=== PATIENT | female | born 1985 | race Caucasian/White ===

== ENCOUNTER 2017-03-15 17:50 | Emergency (ER) | payer MEDICAID ==
[2017-03-15] MEDS ORDERED: NS 0.9% 1000 ML* 1,000 ML IV ONE ×2 (18:04→18:56)
[2017-03-15 18:14] LABS: Hematocrit 39 % (35-47); Hemoglobin 12.7 g/dl (12.0-16.0); Mean Corpuscular HGB Conc 33 g/dl (31-36); Mean Corpuscular Hemoglobin 28 pg (27-31); Mean Corpuscular Volume 87 fL (80-97); Mean Platelet Volume 7 um3 (7.4-10.4); Red Blood Count 4.48 10^6/ul (4.0-5.4); Red Cell Distribution Width 15 % (10.5-15); White Blood Count 5.2 10^3/ul (3.5-10.8)
[2017-03-15 18:17] LABS: Add Diff/Slide Review? Slide Review Added; Comments Flag Yes
[2017-03-15 18:29] LABS: ALT 144 U/L (7-52); AST 415 U/L (13-39); Albumin 4.2 g/dL (3.2-5.2); Alkaline Phosphatase 82 U/L (34-104); Anion Gap 11 mmol/L (2-11); BUN/Creatinine Ratio 19.3 (8-20); Blood Urea Nitrogen 17 mg/dL (6-24); CO2 Carbon Dioxide 24 mmol/L (22-32); Calcium 9.2 mg/dL (8.6-10.3); Chloride 103 mmol/L (101-111); Creatine Kinase 618 U/L (10-223); EGFR African American 97.7 (>60); Globulin 3.4 g/dL (2-4); Glucose 126 mg/dL (70-100); Potassium 3.5 mmol/L (3.5-5.0); Sodium 138 mmol/L (133-145); Total Protein 7.6 g/dL (6.4-8.9)
[2017-03-15 18:40] LABS: Acetaminophen < 15 mcg/mL; Alcohol 323 mg/dL (<10); Salicylate < 2.50 mg/dL (<30)
[2017-03-15 18:51] LABS: TSH (Thyroid Stimulating Horm) 1.62 mcIU/mL (0.34-5.60)
--- NOTE | 2017-03-15 18:59 | ED ---
I, Oh,Soohyun, scribed for Michael Petersen MD on 03/15/17 at 1806 . Substance Abuse/Use - HPI Summary HPI Summary: This 31 y/o female presents to ED via ambulance after being found down by EMS today. Pt was given nasal narcan and CPR on scene, after which pt became responsive again. Pt is tearful but alert and oriented at time of initial evaluation. Pt states that she was "shooting up" recreationally. Pt keeps insisting that she managed to abstained for 4.5 weeks before today's use. She denies that it was suicide attempt. Negative hallucination. EtOH consumption with vodka and beer. - History Of Current Complaint Chief Complaint: EDOverdose Stated Complaint: OVERDOSE Time Seen by Provider: 03/15/17 17:56 Hx Obtained From: Patient, EMS Hx Last Menstrual Period: 3 weeks ago Onset/Duration of Drug/ETOH Abuse: Hours Overdose Characteristics: IV Aggravating Factor(s): Nothing Alleviating Factor(s): Nothing Associated Signs And Symptoms: Intentional Ingestion - recreational - Allergies/Home Medications Allergies/Adverse Reactions: Allergies Allergy/AdvReac Type Severity Reaction Status Date / Time No Known Drug Allergy Allergy See Comment Verified 12/13/15 16:41 Bees Allergy Severe Airway Uncoded 12/13/15 16:41 Obstruction PMH/Surg Hx/FS Hx/Imm Hx Cardiovascular History: Reports: Other Cardiovascular Problems/Disorders - Endocarditis Respiratory History: Reports: Hx Asthma History: Reports: Hx Kidney Infection - age 9, Other Problems/Disorders - ovarian cyst-2006 Musculoskeletal History: Reports: Hx Back Problems Psychiatric History: Reports: Hx Anxiety, Hx Depression, Hx Post Traumatic Stress Disorder - confirmed DSM diagnosis of, Hx Inpatient Treatment - prior U admission as in-pt in 2011, Hx Community Mental Health Tx, Hx Suicide Attempt - suicidal gesture while intoxicated in 2010, Hx Substance Abuse, Other Psychiatric Issues/Disorders - night terrors - Cancer History Cancer Type, Location and Year: ovarian cyst - Surgical History Surgery Procedure, Year, and Place: 2 LEFT KNEE SCOPES, 2 D&Cs, TEETH EXTRACTION , tonsilectomy, ovarian cyst removal Infectious Disease History: Unable to Obtain/Confirm Infectious Disease History: Reports: Hx Hepatitis - hep c +, Hx of Known/ Suspected MRSA Denies: Traveled Outside the [place] in Last 30 Days - Family History Known Family History: Positive: Other - substance abuse - Social History Alcohol Use: Rare Alcohol Amount: hx EtOH abuse Hx Substance Use: Yes Substance Use Type: Reports: Cocaine, Heroin Substance Use Comment - Amount & Last Used: Last use recent Hx Tobacco Use: Yes Smoking Status (MU): Heavy Every Day Tobacco Smoker Type: Cigarettes Amount Used/How Often: 1/2 ppd Have You Smoked in the Last Year: Yes Review of Systems Negative: Fever Positive: Other - burn duncan on LLE leg. Positive abrasion and cut on right side of face Positive: Other - IV drug overdose All Other Systems Reviewed And Are Negative: Yes Physical Exam - Summary Physical Exam Summary: The patient is well-nourished in no acute distress and in no acute pain. The skin is warm and dry and skin color reflects adequate perfusion. Positive burn duncan on LLE lower leg. Positive track lisa on LUE arm. Abrasion on right eyebrow. Cut in right ear. HEENT: The head is normocephalic and atraumatic. The pupils are equal and reactive. The conjunctivae are clear and without drainage. Nares are patent and without drainage. Mouth reveals moist mucous membranes and the throat is without erythema and exudate. The external ears are intact. The ear canals are patent and without drainage. The tympanic membranes are intact. No blood behind ear drums. Neck is supple with full range of motion and non-tender. There are no carotid bruits. There is no neck vein distension. Respiratory: Chest is non-tender. Lungs are clear to auscultation and breath sounds are symmetrical and equal. Cardiovascular: Tachycardic. There is no murmur or rub auscultated. There is no peripheral edema and pulses are symmetrical and equal. Abdomen: The abdomen is soft and non-tender. There are normal bowel sounds heard in all four quadrants and there is no organomegaly palpated. Musculoskeletal: There is no back pain noted. Extremities are non-tender with full range of motion. There is good capillary refill. There is no peripheral edema or calf tenderness elicited. Neurological: Patient is alert and oriented to person, place and time. The patient has symmetrical motor strength in all four extremities. Cranial nerves are grossly intact. Deep tendon reflexes are symmetrical and equal in all four extremities. Psychiatric: The patient has an appropriate affect and does not exhibit any anxiety or depression. Triage Information Reviewed: Yes Vital Signs On Initial Exam: Initial Vitals Temp Pulse Resp BP Pulse Ox 97.7 F 118 18 157/117 98 03/15/17 17:51 03/15/17 17:51 03/15/17 17:51 03/15/17 17:51 03/15/17 17:51 Vital Signs Reviewed: Yes Diagnostics - Vital Signs Vital Signs Temp Pulse Resp BP Pulse Ox 03/15/17 17:51 97.7 F 118 18 157/117 98 - Laboratory Lab Results: Lab Results 03/15/17 03/15/17 03/15/17 Range/Units 18:07 18:07 18:07 WBC 5.2 (3.5-10.8) 10^3/ul RBC 4.48 (4.0-5.4) 10^6/ul Hgb 12.7 (12.0-16.0) g/dl Hct 39 (35-47) % MCV 87 (80-97) fL MCH 28 (27-31) pg MCHC 33 (31-36) g/dl RDW 15 (10.5-15) % Plt Count 202 (150-450) 10^3/ul MPV 7 L (7.4-10.4) um3 Neut % (Auto) 32.0 L (38-83) % Lymph % (Auto) 60.1 H (25-47) % [place] % (Auto) 5.2 (1-9) % Eos % (Auto) 2.3 (0-6) % Baso % (Auto) 0.4 (0-2) % Absolute Neuts (auto) 1.7 (1.5-7.7) 10^3/ul Absolute Lymphs (auto) 3.1 (1.0-4.8) 10^3/ul Absolute Monos (auto) 0.3 (0-0.8) 10^3/ul Absolute Eos (auto) 0.1 (0-0.6) 10^3/ul Absolute Basos (auto) 0 (0-0.2) 10^3/ul Absolute Nucleated RBC 0 10^3/ul Nucleated RBC % 0.1 Sodium 138 (133-145) mmol/L Potassium 3.5 (3.5-5.0) mmol/L Chloride 103 (101-111) mmol/L Carbon Dioxide 24 (22-32) mmol/L Anion Gap 11 (2-11) mmol/L BUN 17 (6-24) mg/dL Creatinine 0.88 (0.51-0.95) mg/dL Est GFR ( Amer) 97.7 (>60) Est GFR (Non-Af Amer) 76.0 (>60) BUN/Creatinine Ratio 19.3 (8-20) Glucose 126 H (70-100) mg/dL Lactic Acid 3.2 H* (0.5-2.0) mmol/L Calcium 9.2 (8.6-10.3) mg/dL Total Bilirubin 0.50 (0.2-1.0) mg/dL AST 415 H (13-39) U/L ALT 144 H (7-52) U/L Alkaline Phosphatase 82 (34-104) U/L Total Creatine Kinase 618 H (10-223) U/L Total Protein 7.6 (6.4-8.9) g/dL Albumin 4.2 (3.2-5.2) g/dL Globulin 3.4 (2-4) g/dL Albumin/Globulin Ratio 1.2 (1-3) TSH 1.62 (0.34-5.60) mcIU/mL Salicylates < 2.50 (<30) mg/dL Acetaminophen < 15 mcg/mL Serum Alcohol 323 H (<10) mg/dL Result Diagrams: 03/15/17 18:07 03/15/17 18:07 Lab Statement: Any lab studies that have been ordered have been reviewed, and results considered in the medical decision making process. - EKG 1852 Cardiac Rate: NL - 97 bpm EKG Rhythm: Sinus Rhythm Course/Dx - Course Assessment/Plan: This 31 y/o female presents to ED via ambulance after being found down on scene. EMS reports presence of IV syringe on the scene. Pt regained consciousness after nasal narcan. Pt is currently alert and oriented at time of initial evaluation, tearful and inconsolable. Pt does admit to IVDA, but states that it was recreational and not suicidal. Right sided facial abrasion, laceration in ear, and track duncan on RUE is noted upon examination. Pt states that she has been clean for 4.5 weeks before today's use. Bloodwork and drug screen are ordered and pending. Pt signed out at shift change. - Diagnoses Differential Diagnosis/HQI/PQRI: Positive: Alcohol Abuse, Other - substance abuse Provider Diagnoses: Substance abuse, IV drug abuse, Acute alcohol intoxication, Heroin overdose Discharge - Discharge Plan Condition: Stable Disposition: OTHER Discharge Disposition Comment: Signed out at shift change. Pending lab work. Patient Education Materials: Polysubstance Abuse (ED) Referrals: Luli Zavala NP [Primary Care Provider] - The documentation as recorded by the Gabriel jolly Soohyun accurately reflects the service I personally performed and the decisions made by , Michael Petersen MD.
[2017-03-15 20:23] LABS: Urine Bacteria 2+ (Absent); Urine Bilirubin Negative (Negative); Urine Glucose Negative (Negative); Urine Nitrite Positive (Negative)
[2017-03-16 01:04] VITALS: BP 165/128
== END 2017-03-16 01:01 ==
LOC: ED 17:50
DX: F19.129 Other psychoactive substance abuse with intoxication, unspecified (principal); F11.10 Opioid abuse, uncomplicated; F17.210 Nicotine dependence, cigarettes, uncomplicated
CPT/HCPCS: 36415; 80053; 80320; 80329; 81003; 81015; 82550; 83605; 84443; 85025; 87077; 87086; 87186; 93005; 99284; G0480

== ENCOUNTER 2017-05-23 02:13 | Emergency (ER) | payer OTHER ==
[2017-05-23] MEDS: NS 0.9% 1000 ML* 2,000 ML IV ONE ×2 (02:15→02:17)
[2017-05-23] MEDS ORDERED: Etomidate* 2 MG/ML 10 ML VIAL ONE (02:16)
[2017-05-23] MEDS ORDERED: Succinylcholine* 20 MG/ML 10 ML VIAL ONE (02:17)
[2017-05-23] MEDS ORDERED: Tetan/Diph/Pertus SYR(Tdap)* 0.5 ML SYR(BOOSTRIX) use SYR IM ONE (02:25)
[2017-05-23] MEDS ORDERED: LORazepam INJ* 2 MG/ML 1 ML VIAL ONE (02:28)
--- NOTE | 2017-05-23 02:38 | HP ---
H&P (Free Text) History and Physical: PCP: Ezequiel Suarez NP Date/Time: 05/23/2017 0230 CC: overdose HPI: Mrs Aranda is a 31YO female [id number] arrest brought in via EMS intubated and unable to give a history. No family are present. This information is therefore obtained via the available records and ED/EMS staff. PMedHx IV drug abuse PTSD depression anxiety bacterical endocarditis w/ septic emboli Ambulatory Orders Nursing to reconcile. Gabapentin [Neurontin 400 mg cap] 400 mg PO TID 12/09/15 Prazosin HCl [Minipress] 1 mg PO BEDTIME 12/09/15 traZODone TAB* [Desyrel TAB*] 100 mg PO BEDTIME 12/09/15 Clindamycin Cap(NF) [Clindamycin Cap 300 mg Cap(NF)] 300 mg PO TID #21 cap 12/12 Sulfamethox/Trimethoprim DS* [Bactrim DS 800/160 TAB*] 1 tab PO BID #14 tab Venlafaxine EXT RELEASE CAP* [Effexor Xr CAP*] 150 mg PO DAILY 12/13/15 Epinephrine [Epipen 2-Dorian] 0.3 mg IM ONCE #1 inj 03/24/16 Famotidine TAB* [Pepcid TAB*] 40 mg PO DAILY #30 tab 03/24/16 diPHENhydraMINE PO* [Benadryl PO*] 50 mg PO Q6H PRN #30 cap 03/24/16 predniSONE TAB* [Deltasone TAB*] 60 mg PO DAILY #15 tab 03/24/16 Ciprofloxacin TAB* [Cipro 250 MG Tab*] 250 mg PO BID #6 tab 03/25/17 Allergies No Known Drug Allergy Allergy (Verified 12/13/15 16:41) See Comment Bees Allergy (Severe, Uncoded 12/13/15 16:41) Airway Obstruction PSurgHx tonsillectomy D&C x2 ovarian cyst excision SocHx: previously noted 1/2 PPD cigarettes, previously denied alcohol, previously admitted to 2-3x/day IV heroin addiction & cocaine abuse; current living status unknown; full code status FamHx: Father passed of HIV/AIDS w/ HX IV drug addiction. ROS: as above, otherwise reviewed and all were negative vitals: Vital Signs Temp 37.1 C 05/23/17 02:22 Pulse 106 05/23/17 02:22 Resp 18 05/23/17 02:22 BP 128/90 05/23/17 02:22 Pulse Ox 100 05/23/17 02:22 Constitutional: NAD, normally developed, overweight white female HEENM: atraumatic; sclera/conjunctiva: ; blephara: ; fundi: ; auricles: ; external auditory canals/tympanic membranes: ; hearing: ; nose/nasal: ; dentition: ; oropharynx: Neck: soft tissue: ; thyroid: Pulmonary: clear to auscultation bilaterally, good aeration, no accessory muscle use, percussion, fremitus CV: RR/RR, normal S1S2, no carotid bruit, no femoral bruit, no abdominal bruit, no jugular venous distention, 2+ B DP/PT, no edema Abdominal: soft, non-distended, non-tender, no rebound/guarding/rigidity, normoactive bowel sounds, no hepatosplenomegaly or masses, no costovertebral angle tenderness Lymph: neck: ; axilla: ; groin: Musculoskeletal: general: grossly intact; gait: currently non-ambulatory Integumental: Neurological cranial nerves I: smell II: visual sanchez III/IV/: light reflex, EOMI/PERRLA, convergence, accommodation V: corneal reflex, facial sensation, mastication VII: facial symmetry, eye clench VIII: hearing IX/X: palatal motion, gag reflex, dysarthria XI: shoulder shrug, trapezius atrophy XII: tongue fasciculation, protrusion, voice articulation motor: handed LUE: proximally, distally, & clinical support tech strength RUE: proximally, distally, & clinical support tech strength LLE: proximally & distally RLE: proximally & distally coordination finger/nose: heal/hardy: dysdiadochokinesia: sensory crude touch: pinprick: vibration: proprioception: DTRs biceps: triceps: brachioradialis: patellar: Achilles: Babinski: Psychiatric orientation: affect: mood: eye contact: content: memory: responses: insight: Testing: ECG, personally reviewed: CXR, personally reviewed: Impression: DIAGNOSIS & PLAN Primary Secondary Admission Rational: DVTp: Code Status: HCP:
[2017-05-23] MEDS ORDERED: Rocuronium* 10 MG/ML VIAL IV ONE ×2 (02:41→03:26)
[2017-05-23] MEDS ORDERED: LORazepam INJ* 2 MG/ML 1 ML VIAL IV PUSH ONE ×2 (02:42→03:27)
[2017-05-23] MEDS: LORazepam INJ* 2 MG/ML 1 ML VIAL IV PUSH ONE ×2 (02:45→03:10)
[2017-05-23] MEDS: Rocuronium* 10 MG/ML VIAL IV ONE ×2 (02:46→03:11)
[2017-05-23 02:50] LABS: Comments Flag Yes; Hematocrit 41 % (35-47); Mean Corpuscular HGB Conc 34 g/dl (31-36); Mean Corpuscular Hemoglobin 30 pg (27-31); Mean Corpuscular Volume 88 fL (80-97); Mean Platelet Volume 7 um3 (7.4-10.4); Red Blood Count 4.68 10^6/ul (4.0-5.4); Red Cell Distribution Width 14 % (10.5-15); White Blood Count 9.3 10^3/ul (3.5-10.8)
[2017-05-23 03:00] LABS: ALT 219 U/L (7-52); Albumin 4.7 g/dL (3.2-5.2); Alkaline Phosphatase 64 U/L (34-104); Amylase 38 U/L (29-103); BUN/Creatinine Ratio 9.6 (8-20); Blood Urea Nitrogen 9 mg/dL (6-24); CO2 Carbon Dioxide 24 mmol/L (22-32); Calcium 8.9 mg/dL (8.6-10.3); Chloride 106 mmol/L (101-111); Creatine Kinase 184 U/L (10-223); EGFR African American 90.5 (>60); EGFR Non-African American 70.4 (>60); Globulin 3.2 g/dL (2-4); Glucose 158 mg/dL (70-100); Lipase 25 U/L (11.0-82.0); Sodium 139 mmol/L (133-145); Total Protein 7.9 g/dL (6.4-8.9)
[2017-05-23 03:02] LABS: Add Diff/Slide Review? Slide Review Added
[2017-05-23 03:08] LABS: Troponin I 0.17 ng/mL (<0.04)
[2017-05-23 03:12] LABS: Alcohol 211 mg/dL (<10)
[2017-05-23 03:22] VITALS: BP 109/84
--- NOTE | 2017-05-23 03:25 | ED ---
Monica Sexton Rebecca, scribed for Kali Lopez on 05/23/17 at 0248 . Altered Mental Status - HPI Summary HPI Summary: Pt is a 31 y/o F BIBA who presents to ED with AMS characterized as unresponsiveness s/p hanging. Pt was found on the ground, inside with a hanging device around her neck upon EMS arrival. Intubation was attempted in the field using Versed which was unsuccessful. PSHx IVDA, PMHx endocarditis. Level 5 caveat due to unresponsiveness. - History Of Current Complaint Chief Complaint: EDRespiratoryDistress Stated Complaint: ABC Hx Obtained From: EMS, Medical Records Hx From Patient Unobtainable Due To: Other - Level 5 caveat due to unresponsiveness. Hx Last Menstrual Period: 3 weeks ago Onset/Duration: Still Present Character: Responsiveness - Unresponsiveness Has Suicidal: Demonstrates Gesture - Hanging ADHESIVE SPRAYER - Allergies/Home Medications Allergies/Adverse Reactions: Allergies Allergy/AdvReac Type Severity Reaction Status Date / Time No Known Drug Allergy Allergy See Comment Verified 12/13/15 16:41 Bees Allergy Severe Airway Uncoded 12/13/15 16:41 Obstruction PMH/Surg Hx/FS Hx/Imm Hx Cardiovascular History: Reports: Other Cardiovascular Problems/Disorders - Endocarditis Respiratory History: Reports: Hx Asthma History: Reports: Hx Kidney Infection - age 9, Other Problems/Disorders - ovarian cyst-2006 Musculoskeletal History: Reports: Hx Back Problems Psychiatric History: Reports: Hx Anxiety, Hx Depression, Hx Post Traumatic Stress Disorder - confirmed DSM diagnosis of, Hx Inpatient Treatment - prior U admission as in-pt in 2011, Hx Community Mental Health Tx, Hx Suicide Attempt - suicidal gesture while intoxicated in 2010, Hx Substance Abuse, Other Psychiatric Issues/Disorders - night terrors - Cancer History Cancer Type, Location and Year: ovarian cyst - Surgical History Surgery Procedure, Year, and Place: 2 LEFT KNEE SCOPES, 2 D&Cs, TEETH EXTRACTION , tonsilectomy, ovarian cyst removal Infectious Disease History: Unable to Obtain/Confirm Infectious Disease History: Reports: Hx Hepatitis - hep c +, Hx of Known/ Suspected MRSA Denies: Traveled Outside the [place] in Last 30 Days - Family History Known Family History: Positive: Other - substance abuse - Social History Alcohol Use: Rare Alcohol Amount: hx EtOH abuse Hx Substance Use: Yes Substance Use Type: Reports: Cocaine, Heroin Substance Use Comment - Amount & Last Used: Last use recent Hx Tobacco Use: Yes Smoking Status (MU): Heavy Every Day Tobacco Smoker Type: Cigarettes Amount Used/How Often: 1/2 ppd Have You Smoked in the Last Year: Yes Review of Systems - ROS Summary Review of Systems Summary: Level 5 caveat due to unresponsiveness. Neurological: Other - AMS - unresponsiveness s/p hanging attempt All Other Systems Reviewed And Are Negative: No Physical Exam - Summary Physical Exam Summary: Appearance: Unresponsive Skin: Superficial lacerations to the L forearm Neck: Abrasions to the neck Respiratory: Respiratory rate of 50 Cardiovascular: Tachycardic rate of around 140 bpm Neuro: Unresponsive Level 5 caveat due to unresponsiveness. Triage Information Reviewed: Yes Vital Signs On Initial Exam: Initial Vitals Temp Pulse Resp BP Pulse Ox 98.8 F 106 18 128/90 100 05/23/17 02:22 05/23/17 02:22 05/23/17 02:22 05/23/17 02:22 05/23/17 02:22 Vital Signs Reviewed: Yes Completion Of Physical Exam Limited Due To: Level 5 - Level 5 caveat due to unresponsiveness. Respiratory/Lung Sounds: Positive: Breath Sounds Present, Rhonchi Cardiovascular: Positive: Tachycardia, S1, S2 Abdomen Description: Positive: Nontender Bowel Sounds: Positive: Present Musculoskeletal: Positive: Limited @ Neurological: Positive: Disoriented Procedures - Intubation Time of Intubation: 02:20 Intubation Method: orotracheal Tube Size (cm): 8.0 Medications: Succinylcholine Breath Sounds after Intubation: equal Intubation Complications: no complications Post Intubation Xray: Yes Progress/Xray Impression: Used Glidescope #3 Diagnostics - Vital Signs Vital Signs Temp Pulse Resp BP Pulse Ox 05/23/17 02:22 98.8 F 106 18 128/90 100 - Laboratory Lab Results: Lab Results 05/23/17 05/23/17 05/23/17 Range/Units 02:16 02:16 02:16 WBC 9.3 (3.5-10.8) 10^3/ul RBC 4.68 (4.0-5.4) 10^6/ul Hgb 14.0 (12.0-16.0) g/dl Hct 41 (35-47) % MCV 88 (80-97) fL MCH 30 (27-31) pg MCHC 34 (31-36) g/dl RDW 14 (10.5-15) % Plt Count 353 (150-450) 10^3/ul MPV 7 L (7.4-10.4) um3 Neut % (Auto) 30.5 L (38-83) % Lymph % (Auto) 62.6 H (25-47) % [place] % (Auto) 5.7 (1-9) % Eos % (Auto) 0.7 (0-6) % Baso % (Auto) 0.5 (0-2) % Absolute Neuts (auto) 2.8 (1.5-7.7) 10^3/ul Absolute Lymphs (auto) 5.8 H (1.0-4.8) 10^3/ul Absolute Monos (auto) 0.5 (0-0.8) 10^3/ul Absolute Eos (auto) 0.1 (0-0.6) 10^3/ul Absolute Basos (auto) 0 (0-0.2) 10^3/ul Absolute Nucleated RBC 0.01 10^3/ul Nucleated RBC % 0.1 INR (Anticoag Therapy) (0.89-1.11) Sodium 139 (133-145) mmol/L Potassium Pending Chloride 106 (101-111) mmol/L Carbon Dioxide 24 (22-32) mmol/L Anion Gap Pending BUN 9 (6-24) mg/dL Creatinine 0.94 (0.51-0.95) mg/dL Est GFR ( Amer) 90.5 (>60) Est GFR (Non-Af Amer) 70.4 (>60) BUN/Creatinine Ratio 9.6 (8-20) Glucose 158 H (70-100) mg/dL POC Glucose (mg/dL) (70-100) mg/dL Lactic Acid 3.9 H* (0.5-2.0) mmol/L Calcium 8.9 (8.6-10.3) mg/dL Total Bilirubin 0.40 (0.2-1.0) mg/dL AST Pending ALT 219 H (7-52) U/L Alkaline Phosphatase 64 (34-104) U/L Total Creatine Kinase 184 (10-223) U/L Troponin I 0.17 H* (<0.04) ng/mL Total Protein 7.9 (6.4-8.9) g/dL Albumin 4.7 (3.2-5.2) g/dL Globulin 3.2 (2-4) g/dL Albumin/Globulin Ratio 1.5 (1-3) Amylase 38 (29-103) U/L Lipase 25 (11.0-82.0) U/L Beta HCG, Quant < 0.60 mIU/mL Serum Alcohol 211 H (<10) mg/dL Blood Type Antibody Screen 05/23/17 05/23/17 05/23/17 Range/Units 02:16 02:16 02:23 WBC (3.5-10.8) 10^3/ul RBC (4.0-5.4) 10^6/ul Hgb (12.0-16.0) g/dl Hct (35-47) % MCV (80-97) fL MCH (27-31) pg MCHC (31-36) g/dl RDW (10.5-15) % Plt Count (150-450) 10^3/ul MPV (7.4-10.4) um3 Neut % (Auto) (38-83) % Lymph % (Auto) (25-47) % [place] % (Auto) (1-9) % Eos % (Auto) (0-6) % Baso % (Auto) (0-2) % Absolute Neuts (auto) (1.5-7.7) 10^3/ul Absolute Lymphs (auto) (1.0-4.8) 10^3/ul Absolute Monos (auto) (0-0.8) 10^3/ul Absolute Eos (auto) (0-0.6) 10^3/ul Absolute Basos (auto) (0-0.2) 10^3/ul Absolute Nucleated RBC 10^3/ul Nucleated RBC % INR (Anticoag Therapy) 0.90 (0.89-1.11) Sodium (133-145) mmol/L Potassium Chloride (101-111) mmol/L Carbon Dioxide (22-32) mmol/L Anion Gap BUN (6-24) mg/dL Creatinine (0.51-0.95) mg/dL Est GFR ( Amer) (>60) Est GFR (Non-Af Amer) (>60) BUN/Creatinine Ratio (8-20) Glucose (70-100) mg/dL POC Glucose (mg/dL) 162 H (70-100) mg/dL Lactic Acid (0.5-2.0) mmol/L Calcium (8.6-10.3) mg/dL Total Bilirubin (0.2-1.0) mg/dL AST ALT (7-52) U/L Alkaline Phosphatase (34-104) U/L Total Creatine Kinase (10-223) U/L Troponin I (<0.04) ng/mL Total Protein (6.4-8.9) g/dL Albumin (3.2-5.2) g/dL Globulin (2-4) g/dL Albumin/Globulin Ratio (1-3) Amylase (29-103) U/L Lipase (11.0-82.0) U/L Beta HCG, Quant mIU/mL Serum Alcohol (<10) mg/dL Blood Type A Positive Antibody Screen Pending Result Diagrams: 05/23/17 02:16 05/23/17 02:16 Lab Statement: Any lab studies that have been ordered have been reviewed, and results considered in the medical decision making process. - Radiology CXR Xray Interpretation: No Acute Changes - ET tube above the marcus. No infiltrate. Radiology Interpretation Completed By: ED Physician - CT CT Chest/Abd/pel CT Interpretation Completed By: Radiologist - Pending radiologist interpretation. See [employer] for results. CT C-Spine CT Interpretation Completed By: Radiologist - Pending radiologist interpretation. See [employer] for results. CT Brain CT Interpretation Completed By: Radiologist - Pending radiologist interpretation. See [employer] for results. Altered Mental Statu Course/Dx - Course Assessment/Plan: Pt is a 31 y/o F BIBA who presents to ED with AMS characterized as unresponsiveness s/p hanging. Pt was found on the ground, inside with a hanging device around her neck upon EMS arrival. Intubation was attempted in the field using Versed which was unsuccessful. PSHx IVDA, PMHx endocarditis. Level 5 caveat due to unresponsiveness. POC glucose of 162, serum alcohol of 211, troponin of 0.17, lactic acid of 3.9. Discussed care of pt with Dr. Gomez who advised transfer to a trauma center. Discussed care of pt with [id number] who accepts pt for transfer. Pt will be transferred to the ED and the accepting physician is Dr. Soria. Pt was intubated in the ED, see above procedure note. In the ED course, pt received Ativan, Zemuron, Boostrix, Kefzol and fluids. Pt will be transferred to [facility]. 60 minutes of critical care time. - Diagnoses Discharge Diagnoses: Altered mental status, Respiratory failure, S/p intubation, Suicide attempt by hanging, Contusion, superficial lacerations of left arm - Provider Notifications Discussed Care Of Patient With: Claudia Gomez Time Discussed With Above Provider: 02:28 Instructed by Provider To: Other - Advised transfer to a trauma center. Discussed care of pt with [facility] at 0231 who accepts pt for transfer. Pt will be transferred to the ED and the accepting physician is Dr. Soria. - Critical Care Time Critical Care Time: 30-74 min - 60 minutes Discharge - Discharge Plan Condition: Guarded Disposition: TRANS HIGHER LVL OF CARE FAC Referrals: Luli Zavala, BLUEPRINT BLOCKER [Primary Care Provider] - The documentation as recorded by the Monica jolly Rebecca accurately reflects the service I personally performed and the decisions made by , Kali Lopez.
[2017-05-23 03:41] LABS: AST 517 U/L (13-39); Anion Gap 9 mmol/L (2-11); Potassium 4.4 mmol/L (3.5-5.0)
--- NOTE | 2017-05-23 08:16 | RAD ---
HISTORY: Trauma COMPARISONS: December 31, 2014 VIEWS: 1: frontal portable view of the chest at 1:36 AM. The right costophrenic angle is cut off. FINDINGS: LINES AND TUBES: An endotracheal tube is noted with tip overlying the trachea at the level clavicles. CARDIOMEDIASTINAL SILHOUETTE: The cardiomediastinal silhouette is normal for portable technique. PLEURA: The left costophrenic angle is sharp. LUNG PARENCHYMA: The lungs are clear. ABDOMEN: The upper abdomen is clear. There is no subphrenic gas. BONES AND SOFT TISSUES: No bone or soft tissue abnormalities are noted. IMPRESSION: LIMITED STUDY. NO ACTIVE CARDIOPULMONARY DISEASE. LINES AND TUBES ABOVE.
--- NOTE | 2017-05-23 08:21 | RAD ---
HISTORY: Trauma, hanging COMPARISONS: January 17, 2013 TECHNIQUE: Multiple contiguous axial CT scans were obtained of the head without intravenous contrast. FINDINGS: HEMORRHAGE/INFARCT: There is no hemorrhage or acute infarct. MASSES/SHIFT: There is no mass or shift. EXTRA-AXIAL SPACES: There are no extra-axial fluid collections. SULCI AND VENTRICLES: The sulci and ventricles are normal in size and position for the patient's stated age. CEREBRUM: There are no focal parenchymal abnormalities. BRAINSTEM: There are no focal parenchymal abnormalities. CEREBELLUM: There are no focal parenchymal abnormalities. VESSELS: The vessels are grossly normal. PARANASAL SINUSES: The paranasal sinuses are clear. ORBITS: The orbits are unremarkable. BONES AND SOFT TISSUE: No bone or soft tissue abnormalities are noted. OTHER: None IMPRESSION: NO ACUTE INTRACRANIAL PATHOLOGY.
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
== END 2017-05-23 03:41 | disposition short-term general hospital (02) ==
LOC: ED 02:13
DX: T14.91XA Suicide attempt, initial encounter (principal); J96.90 Respiratory failure, unspecified, unspecified whether with hypoxia or hypercapnia; S41.112A Laceration without foreign body of left upper arm, initial encounter; S40.022A Contusion of left upper arm, initial encounter; R41.82 Altered mental status, unspecified; X83.8XXA Intentional self-harm by other specified means, initial encounter; Y93.9 Activity, unspecified; Y92.9 Unspecified place or not applicable
CPT/HCPCS: 31500; 36415; 70450; 71010; 71260; 72125; 74177; 80053; 80320; 82150; 82550; 83605; 83690; 84484; 84702; 85025; 85060; 85610; 86850; 86900; 86901; 90715; 92950; 94002; 99285; G0480; J0330; J2060; Q9967

== ENCOUNTER 2017-08-16 00:29 | Emergency (ER) | payer OTHER ==
[2017-08-16] MEDS ORDERED: NS 0.9% 1000 ML* 2,000 ML IV ONE (00:37)
[2017-08-16] MEDS ORDERED: Naloxone* 0.4 MG/ML 1 ML VIAL IM ONE (00:38)
[2017-08-16 02:01] LABS: ABS Basophils 0 10^3/ul (0-0.2); ABS Eosinophils 0 10^3/ul (0-0.6); ABS Lymphocytes 1.3 10^3/ul (1.0-4.8); ABS Monocytes 0.2 10^3/ul (0-0.8); ABS Nucleated RBC 0 10^3/ul; Eosinophil % 0.4 % (0-6); Hematocrit 41 % (35-47); Lymphocyte % 19.6 % (25-47); Mean Corpuscular HGB Conc 34 g/dl (31-36); Mean Corpuscular Hemoglobin 31 pg (27-31); Mean Corpuscular Volume 89 fL (80-97); Mean Platelet Volume 7 um3 (7.4-10.4); Nucleated Red Blood Cells % 0; Platelet Count 255 10^3/ul (150-450); Red Blood Count 4.59 10^6/ul (4.0-5.4); Red Cell Distribution Width 12 % (10.5-15); White Blood Count 6.6 10^3/ul (3.5-10.8)
[2017-08-16 02:08] LABS: INR 0.98 (0.77-1.02)
[2017-08-16 02:16] LABS: EGFR Non-African American 83.6 (>60)
[2017-08-16 04:27] VITALS: BP 137/85
--- NOTE | 2017-08-16 04:40 | ED ---
Kade Sexton Gabriel, scribed for Kali Lopez on 08/16/17 at 0040 . Substance Abuse/Use - HPI Summary HPI Summary: This patient is a 31 year old F presenting to [facility] after being brought in by her friends. They stated she was convulsing and presented the needle she had just used to administer heroin to herself. She was brought in completely unresponsive and blue in the face. Patient is diaphoretic and responded to NARCAN. As she is awakening from her stupor she is combative. - History Of Current Complaint Stated Complaint: OD Time Seen by Provider: 08/16/17 00:36 Hx Obtained From: Other: - observed Hx Last Menstrual Period: 3 weeks ago Onset/Duration of Drug/ETOH Abuse: Minutes Ingestion History: Type/Name Of Drug - heroin Overdose Characteristics: IV Severity Initially: Severe Severity Currently: Mild Character: Angry, Stuporous Associated Signs And Symptoms: Diaphoretic, Other: - not responsive - Allergies/Home Medications Allergies/Adverse Reactions: Allergies Allergy/AdvReac Type Severity Reaction Status Date / Time No Known Drug Allergy Allergy See Comment Verified 08/16/17 00:39 Bees Allergy Severe Airway Uncoded 08/16/17 00:39 Obstruction PMH/Surg Hx/FS Hx/Imm Hx Cardiovascular History: Reports: Other Cardiovascular Problems/Disorders - Endocarditis Respiratory History: Reports: Hx Asthma History: Reports: Hx Kidney Infection - age 9, Other Problems/Disorders - ovarian cyst-2006 Musculoskeletal History: Reports: Hx Back Problems Psychiatric History: Reports: Hx Anxiety, Hx Depression, Hx Post Traumatic Stress Disorder - confirmed DSM diagnosis of, Hx Inpatient Treatment - prior [facility] admission as in-pt in 2011, Hx [facility], Hx Suicide Attempt - suicidal gesture while intoxicated in 2010, Hx Substance Abuse, Other Psychiatric Issues/Disorders - night terrors - Cancer History Cancer Type, Location and Year: ovarian cyst - Surgical History Surgery Procedure, Year, and Place: 2 LEFT KNEE SCOPES, 2 D&Cs, TEETH EXTRACTION , tonsilectomy, ovarian cyst removal - Immunization History Date of Tetanus Vaccine: 05/23/2017 Infectious Disease History: Reports: Hx Hepatitis - hep c +, Hx of Known/ Suspected MRSA Denies: Traveled Outside the [place] in Last 30 Days - Family History Known Family History: Positive: Other - substance abuse - Social History Alcohol Use: patient with ETOH level today Alcohol Amount: hx EtOH abuse Hx Substance Use: Yes Substance Use Type: Reports: Cocaine, Heroin Substance Use Comment - Amount & Last Used: Last use recent unknown Hx Tobacco Use: Yes Smoking Status (MU): Heavy Every Day Tobacco Smoker Type: Cigarettes Amount Used/How Often: 1/2 ppd Have You Smoked in the Last Year: Yes Review of Systems - ROS Summary Review of Systems Summary: ROS limited due to the patient being unresponsive. Positive: Skin Diaphoresis. Negative: Fever Neurological: Other - unresponsive Positive: Slurred Speech All Other Systems Reviewed And Are Negative: No Physical Exam - Summary Physical Exam Summary: Appearance: patient is lethargic Skin: warm, dry, reflects adequate perfusion Head/face: normal Eyes: EOMI, SHANITA ENT: normal Neck: supple, non-tender Respiratory: CTA, breath sounds present Cardiovascular: RRR, pulses symmetrical Abdomen: non-tender, soft Bowel: present Musculoskeletal: normal, strength/ROM intact Neuro: normal, sensory motor intact, A&Ox3 Triage Information Reviewed: Yes Vital Signs On Initial Exam: Initial Vitals Temp Pulse Resp BP Pulse Ox 97.0 F 127 22 125/106 100 08/16/17 00:38 08/16/17 00:38 08/16/17 00:38 08/16/17 00:38 08/16/17 00:38 Vital Signs Reviewed: Yes Diagnostics - Vital Signs Vital Signs Temp Pulse Resp BP Pulse Ox 08/16/17 04:00 98.2 F 91 18 137/85 98 08/16/17 00:38 97.0 F 127 22 125/106 100 - Laboratory Lab Results: Lab Results 08/16/17 08/16/17 08/16/17 Range/Units 01:50 01:50 01:50 WBC 6.6 (3.5-10.8) 10^3/ul RBC 4.59 (4.0-5.4) 10^6/ul Hgb 14.0 (12.0-16.0) g/dl Hct 41 (35-47) % MCV 89 (80-97) fL MCH 31 (27-31) pg MCHC 34 (31-36) g/dl RDW 12 (10.5-15) % Plt Count 255 (150-450) 10^3/ul MPV 7 L (7.4-10.4) um3 Neut % (Auto) 75.9 (38-83) % Lymph % (Auto) 19.6 L (25-47) % [place] % (Auto) 3.7 (1-9) % Eos % (Auto) 0.4 (0-6) % Baso % (Auto) 0.4 (0-2) % Absolute Neuts (auto) 5.0 (1.5-7.7) 10^3/ul Absolute Lymphs (auto) 1.3 (1.0-4.8) 10^3/ul Absolute Monos (auto) 0.2 (0-0.8) 10^3/ul Absolute Eos (auto) 0 (0-0.6) 10^3/ul Absolute Basos (auto) 0 (0-0.2) 10^3/ul Absolute Nucleated RBC 0 10^3/ul Nucleated RBC % 0 INR (Anticoag Therapy) 0.98 (0.77-1.02) APTT 26.8 (26.0-36.3) seconds Sodium 140 (133-145) mmol/L Potassium 3.6 (3.5-5.0) mmol/L Chloride 107 (101-111) mmol/L Carbon Dioxide 19 L (22-32) mmol/L Anion Gap 14 H (2-11) mmol/L BUN 9 (6-24) mg/dL Creatinine 0.81 (0.51-0.95) mg/dL Est GFR ( Amer) 107.5 (>60) Est GFR (Non-Af Amer) 83.6 (>60) BUN/Creatinine Ratio 11.1 (8-20) Glucose 131 H (70-100) mg/dL Calcium 8.9 (8.6-10.3) mg/dL Total Bilirubin 0.30 (0.2-1.0) mg/dL AST 63 H (13-39) U/L ALT 47 (7-52) U/L Alkaline Phosphatase 44 (34-104) U/L Troponin I 0.01 (<0.04) ng/mL Total Protein 7.4 (6.4-8.9) g/dL Albumin 4.6 (3.2-5.2) g/dL Globulin 2.8 (2-4) g/dL Albumin/Globulin Ratio 1.6 (1-3) Beta HCG, Quant < 0.60 mIU/mL Serum Alcohol 206 H (<10) mg/dL Result Diagrams: 08/16/17 01:50 08/16/17 01:50 Lab Statement: Any lab studies that have been ordered have been reviewed, and results considered in the medical decision making process. Course/Dx - Course Assessment/Plan: This patient is a 31 year old F presenting to [facility] after being brought in by her friends. They stated she was convulsing and presented the needle she had just used to administer heroin to herself. She was brought in completely unresponsive and blue in the face. Patient is diaphoretic and responded to NARCAN. As she is awakening from her stupor she is combative. Patient is denying SI and her boyfriend has arrived and she wishes to go home. The effects of the drugs she took have worn off and she will be discharged home for her boyfriend to watch over her. - Diagnoses Differential Diagnosis/HQI/PQRI: Positive: Alcohol Abuse, Drug Abuse Provider Diagnoses: Substance abuse, Alcohol intoxication - Critical Care Time Critical Care Time: 30-74 min Discharge - Discharge Plan Condition: Stable Disposition: HOME Patient Education Materials: Polysubstance Abuse (ED) Referrals: Luli Zavala NP [Primary Care Provider] - Additional Instructions: RETURN TO THE EMERGENCY DEPARTMENT FOR CHANGING OR WORSENING SYMPTOMS. The documentation as recorded by the Kade jolly Gabriel accurately reflects the service I personally performed and the decisions made by , Kali Lopez.
== END 2017-08-16 04:00 | disposition home or self-care (01) ==
LOC: ED 00:29
DX: F19.10 Other psychoactive substance abuse, uncomplicated (principal); F10.129 Alcohol abuse with intoxication, unspecified; Y90.7 Blood alcohol level of 200-239 mg/100 ml
CPT/HCPCS: 36415; 80053; 80320; 84484; 84702; 85025; 85610; 85730; 96372; 99285; G0480

== ENCOUNTER 2018-01-04 21:01 | Emergency (ER) | payer OTHER ==
[2018-01-04] MEDS ORDERED: LORazepam INJ* 2 MG/ML 1 ML VIAL IM ONE (21:32)
[2018-01-04] MEDS ORDERED: LORazepam INJ* 2 MG/ML 1 ML VIAL ONE (21:35)
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
[2018-01-05 06:28] VITALS: BP 113/68
== END 2018-01-05 06:44 | disposition home or self-care (01) ==
LOC: ED 21:01
DX: F10.129 Alcohol abuse with intoxication, unspecified (principal); F39 Unspecified mood [affective] disorder
CPT/HCPCS: 96372; 99284; J2060

== ENCOUNTER 2018-05-03 13:26 | Emergency (ER) | payer MEDICAID ==
[2018-05-03 13:43] VITALS: BP 139/102
--- NOTE | 2018-05-03 13:54 | UC ---
Lower Extremity/Ankle HPI - HPI Summary HPI Summary: 32 yo female presents with RIGHT ankle pain. Two days ago she was walking on uneven ground and inverted her right ankle. Since that time she has had significant pain and swelling. She is able to ambulate without assistance, but does have significant pain. She has not been RICEing or taking anything OTC for her discomfort. Notes some numbness in her right foot, but this was present BEFORE her recent injury. - History of Current Complaint Chief Complaint: UCLowerExtremity Stated Complaint: ANKLE INJURY Time Seen by Provider: 05/03/18 13:54 Hx Obtained From: Patient Hx Last Menstrual Period: 04/02/18 Onset/Duration: Sudden Onset Severity Initially: Severe Severity Currently: Severe Pain Intensity: 8 Pain Scale Used: 0-10 Numeric Aggravating Factor(s): Standing, Ambulation Able to Bear Weight: Yes - Allergies/Home Medications Allergies/Adverse Reactions: Allergies Allergy/AdvReac Type Severity Reaction Status Date / Time Bees Allergy Severe Airway Uncoded 05/03/18 13:43 Obstruction PMH/Surg Hx/FS Hx/Imm Hx - Additional Past Medical History Additional PMH: None - Surgical History Surgical History: Yes Surgery Procedure, Year, and Place: 2 LEFT KNEE SCOPES, 2 D&Cs, TEETH EXTRACTION , tonsilectomy x2, ovarian cyst removal - Family History Known Family History: Positive: Other - substance abuse - Social History Lives: With Family Alcohol Use: Daily Alcohol Amount: hx EtOH abuse Substance Use Type: Cocaine, Heroin, Marijuana Substance Use Comment - Amount & Last Used: Last use recent unknown Smoking Status (MU): Heavy Every Day Tobacco Smoker Type: Cigarettes Amount Used/How Often: 1ppd Have You Smoked in the Last Year: Yes Household Exposure Type: Cigarettes - Immunization History Most Recent Influenza Vaccination: unknown Most Recent Tetanus Shot: unknown Most Recent Pneumonia Vaccination: never Review of Systems Constitutional: Negative Skin: Negative Respiratory: Negative Cardiovascular: Negative Motor: Negative Neurovascular: Decreased Sensation Musculoskeletal: Other: - RIGHT ANKLE pain Neurological: Negative Psychological: Negative All Other Systems Reviewed And Are Negative: Yes Physical Exam - Summary Physical Exam Summary: GENERAL: NAD. WDWN. No pain distress. SKIN: No rashes, sores, lesions, or open wounds. CHEST: No accessory muscle use. Breathing comfortably and in no distress. CV: Pulses intact PT and DP. Cap refill <2seconds MSK: RIGHT ANKLE: TTP over lateral malleolus. Moderate edema. FROM, but pain with inversion. Strength 5/5. Negative talar tilt. No increased laxity. NEURO: Alert. Sensations intact and symmetric B/L LEs PSYCH: Age appropriate behavior. Triage Information Reviewed: Yes Vital Signs: Initial Vital Signs Temp 96.9 F 05/03/18 13:37 Pulse 91 05/03/18 13:37 Resp 18 05/03/18 13:37 BP 139/102 05/03/18 13:37 Pulse Ox 99 05/03/18 13:37 Vital Signs Reviewed: Yes Lower Extremity Course/Dx - Course Course Of Treatment: XR: IMPRESSION: #. Lateral soft tissue swelling without evidence for fracture or malalignment. Dileep wrap, gel splint, and crutches provided to pt. Advised to f/u with Orthopedics if her symptoms persist. RICE and take ibuprofen for discomfort. - Differential Dx/Diagnosis Provider Diagnoses: Right ankle sprain Discharge - Sign-Out/Discharge Documenting (check all that apply): Patient Departure All imaging exams completed and their final reports reviewed: Yes - Discharge Plan Condition: Stable Disposition: HOME Patient Education Materials: Ankle Sprain (DC) Referrals: No Primary Care Phys,NOPCP [Primary Care Provider] - Ray Strickland MD [Medical Doctor] - As Soon As Possible Additional Instructions: If you develop a fever, shortness of breath, chest pain, new or worsening symptoms - please call your PCP or go to the ED. Your blood pressure was high at todays visit. Please see your primary provider within 4 weeks for recheck and re-evaluation. 1) Rest, Ice, and elevate your ankle as much as possible 2) Please call Orthopedics at the number below to schedule a follow up appointment as soon as possible - Billing Disposition and Condition Condition: STABLE Disposition: Home - Attestation Statements Provider Attestation: Per institutional requirements, I have reviewed the chart, however, I was not consulted specifically or made aware of this patient by the midlevel provider. I did not personally evaluate, interact with , or disposition this patient.
--- NOTE | 2018-05-03 14:40 | RAD ---
Indication: RIGHT ankle pain and numbness. Rolling injury. History of LEFT ankle fracture. Comparison: No relevant prior exams available on the [facility] for [place]. Technique: AP, mortise, and lateral views RIGHT ankle. Report: Soft tissue swelling over the lateral malleolus. Negative for fracture or articular malalignment. Mild talocrural and talonavicular joint osteophytosis without significant joint space narrowing. Small os trigonum accessory ossicle. IMPRESSION: #. Lateral soft tissue swelling without evidence for fracture or malalignment.
== END 2018-05-03 14:50 | disposition home or self-care (01) ==
LOC: UCEAST 13:26
CPT/HCPCS: 99203; G0463

== ENCOUNTER 2018-07-13 17:39 | Emergency (ER) | payer MEDICAID, OTHER ==
[2018-07-13 18:56] LABS: ABS Basophils 0 10^3/ul (0-0.2); ABS Eosinophils 0.1 10^3/ul (0-0.6); ABS Lymphocytes 1.6 10^3/ul (1.0-4.8); ABS Monocytes 0.6 10^3/ul (0-0.8); ABS Neutrophils 1.4 10^3/ul (1.5-7.7); ABS Nucleated RBC 0 10^3/ul; Eosinophil % 1.7 %; Hematocrit 35 % (35-47); Hemoglobin 11.9 g/dl (12.0-16.0); Lymphocyte % 43.8 %; Mean Corpuscular HGB Conc 34 g/dl (31-36); Mean Corpuscular Hemoglobin 32 pg (27-31); Mean Corpuscular Volume 94 fL (80-97); Nucleated Red Blood Cells % 0.2; Platelet Count 203 10^3/ul (150-450); Red Blood Count 3.74 10^6/ul (4.00-5.40); Red Cell Distribution Width 13 % (10.5-15); White Blood Count 3.6 10^3/ul (3.5-10.8)
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
[2018-07-14] MEDS ORDERED: Cephalexin CAP* 500 MG PO ONE
[2018-07-14 00:09] VITALS: BP 136/83
== END 2018-07-14 00:22 | disposition home or self-care (01) ==
LOC: ED 17:39
DX: L03.116 Cellulitis of left lower limb (principal); M19.072 Primary osteoarthritis, left ankle and foot; M79.89 Other specified soft tissue disorders; Z91.030 Bee allergy status; F17.210 Nicotine dependence, cigarettes, uncomplicated
CPT/HCPCS: 36415; 80053; 83605; 83880; 84702; 85025; 99283; A9270-GY

== ENCOUNTER 2018-07-27 15:29 | Emergency (ER) | payer OTHER ==
[2018-07-27] MEDS ORDERED: Ketorolac INJ* 30 MG/ML 1 ML VIAL IV PUSH ONE (16:12)
[2018-07-27] MEDS ORDERED: LORazepam INJ* 2 MG/ML 1 ML VIAL IV PUSH ONE (16:12)
[2018-07-27 16:13] LABS: ABS Basophils 0 10^3/ul (0-0.2); ABS Eosinophils 0.1 10^3/ul (0-0.6); ABS Lymphocytes 1.9 10^3/ul (1.0-4.8); ABS Monocytes 0.3 10^3/ul (0-0.8); ABS Neutrophils 1.2 10^3/ul (1.5-7.7); ABS Nucleated RBC 0 10^3/ul; Eosinophil % 1.6 %; Hematocrit 36 % (35-47); Lymphocyte % 54.1 %; Mean Corpuscular HGB Conc 34 g/dl (31-36); Mean Corpuscular Hemoglobin 32 pg (27-31); Mean Corpuscular Volume 95 fL (80-97); Nucleated Red Blood Cells % 0.1; Platelet Count 180 10^3/ul (150-450); Red Blood Count 3.79 10^6/ul (4.00-5.40); Red Cell Distribution Width 13 % (10.5-15); White Blood Count 3.4 10^3/ul (3.5-10.8)
[2018-07-27] MEDS ORDERED: Albuterol/Ipratropium NEB.SOL* Albuterol 2.5 MG/Ipratropium 0.5 MG 3 ML INH ONE ×2 (16:13→16:24)
[2018-07-27 16:31] LABS: EGFR Non-African American 105.2 (>60)
[2018-07-27] MEDS ORDERED: Iohexol 350* (CONTRAST) 500 ML MDV IV ONE (17:20)
--- NOTE | 2018-07-27 17:30 | ED ---
HPI Chest Pain - HPI Summary HPI Summary: The patient is a 32-year-old female with a complicated past medical history of IV drug abuse, endocarditis, cellulitis, hep C, latent syphilis and multiple drug ODs and alcohol abuse presents to the ED with a 2 day worsening history of left-sided chest pain and shortness of breath. She denies any IV drug use times approximately 5 months. She continues to drink alcohol and is a heavy smoker. She also endorses marijuana use. She is endorsing a feeling of "chest congestion" which has now developed into left-sided pain and shortness of breath. She states she feels she cannot take a big deep breath. Denies any subjective fevers, and denies any sweats or chills. She denies any abdominal pain, nausea/vomiting, this patient, diarrhea, headache, visual changes, neck pain. - History of Current Complaint Chief Complaint: EDShortnessOfBreath Time Seen by Provider: 07/27/18 15:48 Hx Obtained From: Patient Hx Last Menstrual Period: 04/02/18 Onset/Duration: Started Hours Ago Timing: Constant Initial Severity: Severe Current Severity: Severe Pain Intensity: 5 Pain Scale Used: 0-10 Numeric Chest Pain Location: Diffuse Chest Pain Radiates: Yes Chest Pain Radiates To:: Back Character: Dull/Aching, Sharp/Stabbing Aggravating Factor(s): Exertion, Position Alleviating Factor(s): Nothing Associated Signs and Symptoms: Positive: Anxiety, Recent Stress - Risk Factors Pulmonary Embolism Risk Factors: Negative TAD Risk Factors: Negative - Additional Pertinent History Primary Care Physician: [id number] - Allergy/Home Medications Allergies/Adverse Reactions: Allergies Allergy/AdvReac Type Severity Reaction Status Date / Time Bees Allergy Severe Airway Uncoded 05/03/18 13:43 Obstruction Home Medications: Home Medications Buprenorp/Nalox 8-2 MG SL TAB [Suboxone 8-2 mg SL TAB*] 1 tab.sl SL TID [History Confirmed 07/27/18] PMH/Surg Hx/FS Hx/Imm Hx Previously Healthy: Yes Endocrine/Hematology History: Denies: Hx Diabetes Cardiovascular History: Reports: Other Cardiovascular Problems/Disorders - Endocarditis Denies: Hx Hypertension Respiratory History: Reports: Hx Asthma History: Reports: Hx Kidney Infection - age 9, Other Problems/Disorders - ovarian cyst-2006 Denies: Hx Renal Disease Musculoskeletal History: Reports: Hx Back Problems Psychiatric History: Reports: Hx Anxiety, Hx Depression, Hx Post Traumatic Stress Disorder - confirmed DSM diagnosis of, Hx Inpatient Treatment - prior [facility] admission as in-pt in 2011, Hx Community Mental Health Tx, Hx Suicide Attempt - suicidal gesture while intoxicated in 2010, Hx Substance Abuse, Other Psychiatric Issues/Disorders - night terrors - Cancer History Cancer Type, Location and Year: ovarian cyst - Surgical History Surgery Procedure, Year, and Place: 3 LEFT KNEE SCOPES, 3 D&Cs, TEETH EXTRACTION , tonsilectomy x2, ovarian cyst removal - Immunization History Date of Tetanus Vaccine: 05/23/2017 Date of Influenza Vaccine: unk Hx Pertussis Vaccination: No Immunizations Up to Date: Yes Infectious Disease History: No Infectious Disease History: Reports: Hx Hepatitis - hep c +, Hx of Known/ Suspected MRSA Denies: Traveled Outside the [place] in Last 30 Days - Family History Known Family History: Positive: Other - substance abuse - Social History Occupation: Unemployed Lives: With Family Alcohol Use: Daily Alcohol Amount: hx EtOH abuse Hx Substance Use: Yes Substance Use Type: Reports: Cocaine, Heroin, Marijuana Substance Use Comment - Amount & Last Used: Last use recent unknown Hx Tobacco Use: Yes Smoking Status (MU): Heavy Every Day Tobacco Smoker Type: Cigarettes Amount Used/How Often: 1ppd Have You Smoked in the Last Year: Yes Review of Systems Constitutional: Negative Negative: Fever, Chills, Fatigue, Skin Diaphoresis Positive: Chest Pain. Negative: Palpitations Positive: Shortness Of Breath. Negative: Cough Genitourinary: Negative Positive: no symptoms reported, see HPI Positive: Myalgia - left lower extremity pain. Negative: Arthralgia Skin: Negative All Other Systems Reviewed And Are Negative: Yes Physical Exam Triage Information Reviewed: Yes Vital Signs On Initial Exam: Initial Vitals Temp Pulse Resp BP Pulse Ox 98.1 F 127 20 144/83 97 07/27/18 15:30 07/27/18 15:30 07/27/18 15:30 07/27/18 15:30 07/27/18 15:30 Vital Signs Reviewed: Yes Appearance: Positive: Pain Distress - patient is tachypnic and crying Skin: Positive: Skin Color Reflects Adequate Perfusion Head/Face: Positive: Normal Head/Face Inspection Eyes: Positive: EOMI, SHANITA, Conjunctiva Clear Neck: Positive: Supple, No Lymphadenopathy Respiratory/Lung Sounds: Positive: Decreased Breath Sounds Cardiovascular: Positive: Pulses are Symmetrical in both Upper and Lower Extremities, Tachycardia. Negative: Leg Edema Left, Leg Edema Right Musculoskeletal: Positive: Normal, Strength/ROM Intact, Other - negative homans bilaterally Neurological: Positive: Speech Normal Psychiatric: Positive: Normal, Affect/Mood Appropriate AVPU Assessment: Alert Diagnostics - Vital Signs Vital Signs Temp Pulse Resp BP Pulse Ox 07/27/18 16:37 18 07/27/18 16:24 102 18 100 07/27/18 15:30 98.1 F 127 20 144/83 97 - Laboratory Lab Results: Lab Results 07/27/18 07/27/18 07/27/18 Range/Units 16:04 16:04 16:04 WBC 3.4 L (3.5-10.8) 10^3/ul RBC 3.79 L (4.00-5.40) 10^6/ul Hgb 12.0 (12.0-16.0) g/dl Hct 36 (35-47) % MCV 95 (80-97) fL MCH 32 H (27-31) pg MCHC 34 (31-36) g/dl RDW 13 (10.5-15) % Plt Count 180 (150-450) 10^3/ul MPV 7.0 L (7.4-10.4) fL Neut % (Auto) 34.4 % Lymph % (Auto) 54.1 % [facility] % (Auto) 9.5 % Eos % (Auto) 1.6 % Baso % (Auto) 0.4 % Absolute Neuts (auto) 1.2 L (1.5-7.7) 10^3/ul Absolute Lymphs (auto) 1.9 (1.0-4.8) 10^3/ul Absolute Monos (auto) 0.3 (0-0.8) 10^3/ul Absolute Eos (auto) 0.1 (0-0.6) 10^3/ul Absolute Basos (auto) 0 (0-0.2) 10^3/ul Absolute Nucleated RBC 0 10^3/ul Nucleated RBC % 0.1 D-Dimer, Quantitative > 1050 H (Less Than 230) ng/mL Sodium 139 (135-145) mmol/L Potassium 3.4 L (3.5-5.0) mmol/L Chloride 104 (101-111) mmol/L Carbon Dioxide 24 (22-32) mmol/L Anion Gap 11 (2-11) mmol/L BUN 6 (6-24) mg/dL Creatinine 0.66 (0.51-0.95) mg/dL Est GFR ( Amer) 127.2 (>60) Est GFR (Non-Af Amer) 105.2 (>60) BUN/Creatinine Ratio 9.1 (8-20) Glucose 136 H (70-100) mg/dL Calcium 8.5 L (8.6-10.3) mg/dL Total Bilirubin 0.20 (0.2-1.0) mg/dL AST 168 H (13-39) U/L ALT 58 H (7-52) U/L Alkaline Phosphatase 71 (34-104) U/L C-Reactive Protein 1.38 (<8.01) mg/L Total Protein 6.8 (6.4-8.9) g/dL Albumin 3.9 (3.2-5.2) g/dL Globulin 2.9 (2-4) g/dL Albumin/Globulin Ratio 1.3 (1-3) Beta HCG, Quant < 0.60 mIU/mL Result Diagrams: 07/27/18 16:04 07/27/18 16:04 Lab Statement: Any lab studies that have been ordered have been reviewed, and results considered in the medical decision making process. Chest Pain Course/Dx - Course Course Of Treatment: During the course of treatment, the patient is evaluated for left-sided acute onset chest pain 2 days ago which she feels has been worsening. She also is endorsing SOB and worsening pain with taking a deep breath. Denies any fevers, sweats, chills. She was admitted to the hospital 2 years ago for endocarditis and has also been seen last year for an OD as well as multiple visits for cellulitis secondary to IV drug use. She states today she has had no IV drug use 5 months. However, due to her history, blood cultures are obtained. Labs obtained and show a WBC of 3.4. Chest x-ray obtained which shows no acute cardiopulmonary disease. EKG shows a sinus tachycardia at 109. D-dimer elevated at > 1050. CTA subsequently obtained: NO PULMONARY EMBOLISM. Upon further questioning, patient states she has had bilateral calf pain, however it is worse to the left side she has had multiple incidents of cellulitis and scabs. She endorses pain to the right calf due to her dropfoot. Lung sounds are diminished throughout without worsening to a unilateral side. She is tachycardia at 130 and tachypnic at 25. Patient appears anxious. Due to no fever, patient will not have septic workup started at this time. She is instead given an Ativan and Toradol with good relief of her symptoms upon recheck 30 minutes after dispensing of medications. After medications, VS are stabilized. Ultrasound of the left lower extremity obtained : NO DVT OF THE LEFT LOWER EXTREMITY. Patient eloped to outside during her stay to smoke. Unsure if patient ingested/used any drugs during that time. She states she did not. Discussed treatment options with patient. I have offered her admission d/t the severity of her symptoms and her hx but she declines. She is given albuterol inhaler and rx for prednisone. She understands to return for worsening/c hanging symptoms. - Chest Pain Differential Diagnosis/HQI/PQRI: Chest Wall, Lower Respiratory Infection, Pulmonary Edema, Pulmonary Embolism, Other: - drug abuse/drug use; bronchitis - Diagnoses Provider Diagnoses: Shortness of breath, Atypical chest pain Discharge - Sign-Out/Discharge Documenting (check all that apply): Patient Departure - Discharge Plan Condition: Stable Disposition: HOME Prescriptions: predniSONE TAB* [Deltasone TAB*] 50 mg PO DAILY #5 tab MDD 1 Referrals: Zoe Mitchell MD [Primary Care Provider] - Additional Instructions: Prednisone once daily in the morning x 5 days DO NOT SMOKE drink plenty of water Albuterol inhaler as needed for shortness of breath return if you develop any worsening or changing symptoms - Billing Disposition and Condition Condition: STABLE Disposition: Home
[2018-07-27] MEDS ORDERED: Albuterol HFA INHALER* 8 gm MDI INH ONE (19:35)
[2018-07-27 20:00] VITALS: BP 128/89
== END 2018-07-27 19:57 | disposition home or self-care (01) ==
LOC: ED 15:29
DX: R06.02 Shortness of breath (principal); R07.89 Other chest pain; F17.210 Nicotine dependence, cigarettes, uncomplicated; I38 Endocarditis, valve unspecified; J45.909 Unspecified asthma, uncomplicated; F43.10 Post-traumatic stress disorder, unspecified; F32.9 Major depressive disorder, single episode, unspecified; F41.9 Anxiety disorder, unspecified; B19.20 Unspecified viral hepatitis C without hepatic coma
CPT/HCPCS: 36415; 71046; 71275; 80053; 82553; 84484; 84702; 85025; 85379; 86140; 87040; 93005; 96374; 96375; 99283; A9270-GY; J1885; J2060; Q9967

== ENCOUNTER 2018-11-29 20:00 | Emergency (ER) | payer OTHER ==
--- NOTE | 2018-11-29 20:54 | ED ---
Substance Abuse/Use - HPI Summary HPI Summary: This pt is a 32 y/o female presenting to [facility] via police district switchboard operator for alcohol intoxication. Pt was found in the road with multiple lacerations to arm. Pt is uncooperative. HPI IS LIMITED DUE TO LEVEL 5 CAVEAT - pt is intoxicated. - History Of Current Complaint Chief Complaint: EDSubstanceAbuse Stated Complaint: [id number] INTOXICATED PER POLICE Time Seen by Provider: 11/29/18 20:44 Hx Obtained From: Other: - police district switchboard operator Hx From Patient Unobtainable Due To: Other - LEVEL 5 CAVEAT - pt is intoxicated Hx Last Menstrual Period: 04/02/18 Ingestion History: Amount Ingested - unknown, Approximate Time Of Ingestion - unknown Overdose Characteristics: Oral Severity Currently: Moderate Aggravating Factor(s): Nothing Alleviating Factor(s): Nothing Associated Signs And Symptoms: Intentional Ingestion - Allergies/Home Medications Allergies/Adverse Reactions: Allergies Allergy/AdvReac Type Severity Reaction Status Date / Time Bees Allergy Severe Airway Uncoded 11/12/18 11:47 Obstruction PMH/Surg Hx/FS Hx/Imm Hx Endocrine/Hematology History: Denies: Hx Diabetes Cardiovascular History: Reports: Other Cardiovascular Problems/Disorders - Endocarditis Denies: Hx Hypertension Respiratory History: Reports: Hx Asthma History: Reports: Hx Kidney Infection - age 9, Other Problems/Disorders - ovarian cyst-2006 Denies: Hx Renal Disease Musculoskeletal History: Reports: Hx Back Problems Psychiatric History: Reports: Hx Anxiety, Hx Depression, Hx Post Traumatic Stress Disorder - confirmed DSM diagnosis of, Hx Inpatient Treatment - prior [facility] admission as in-pt in 2011, Hx [facility] Tx, Hx Suicide Attempt - suicidal gesture while intoxicated in 2010, Hx Substance Abuse, Other Psychiatric Issues/Disorders - night terrors - Cancer History Cancer Type, Location and Year: ovarian cyst - Surgical History Surgery Procedure, Year, and Place: 3 LEFT KNEE SCOPES, 3 D&Cs, TEETH EXTRACTION , tonsilectomy x2, ovarian cyst removal - Immunization History Date of Tetanus Vaccine: 05/23/2017 Date of Influenza Vaccine: unk Infectious Disease History: No Infectious Disease History: Reports: Hx Hepatitis - hep c +, Hx of Known/ Suspected MRSA Denies: Traveled Outside the [place] in Last 30 Days - Family History Known Family History: Positive: Other - substance abuse - Social History Alcohol Use: Weekly Alcohol Amount: 4x week Hx Substance Use: Yes Substance Use Type: Reports: Marijuana Substance Use Comment - Amount & Last Used: hx IV drug use. hasnt used in 1.5 years Hx Tobacco Use: Yes Smoking Status (MU): Heavy Every Day Tobacco Smoker Type: Cigarettes Amount Used/How Often: 1ppd Have You Smoked in the Last Year: Yes Review of Systems - ROS Summary Review of Systems Summary: ROS IS LIMITED DUE TO LEVEL 5 CAVEAT - pt is intoxicated Negative: Fever Skin: Other - POS: lacerations on right forearm Psychological: Other - POS: pt with alcohol intoxication All Other Systems Reviewed And Are Negative: No Physical Exam - Summary Physical Exam Summary: Appearance: Appears intoxicated. Skin: Warm, dry, no obvious rash. Superficial linear abrasions along the volar right forearm, none which require suturing. Eyes: sclera anicteric, no conjunctival pallor ENT: mucous membranes moist Neck: deferred Respiratory: No signs of respiratory distress Cardiovascular: Appears well perfused, pulses are nml Abdomen: deferred Musculoskeletal: Right foot with tenderness and mild swelling along the mid foot. Neurological: Patient is awake and alert answering questions with slurred speech. Triage Information Reviewed: Yes Vital Signs On Initial Exam: Initial Vitals Temp Pulse Resp BP Pulse Ox 98.1 F 106 22 131/92 97 11/29/18 20:15 11/29/18 20:15 11/29/18 20:15 11/29/18 20:15 11/29/18 20:15 Vital Signs Reviewed: Yes Completion Of Physical Exam Limited Due To: Level 5 - pt is intoxicated Diagnostics - Vital Signs Vital Signs Temp Pulse Resp BP Pulse Ox 11/29/18 20:15 98.1 F 106 22 131/92 97 - Laboratory Lab Statement: Any lab studies that have been ordered have been reviewed, and results considered in the medical decision making process. Course/Dx - Course Assessment/Plan: Pt is a 32 y/o female presenting to [facility] via police district switchboard operator for possible alcohol intoxication. Pt was found in the road with multiple lacerations to arm. Pt is uncooperative. HPI is limited due to current presentation of intoxcation. Right foot XR was ordered due to right foot tenderness and mild swelling along the mid foot revealed in physical exam. Pt will be signed out to Dr. Potter at shift change, pending disposition, awaiting sobriety and foot XR. - Diagnoses Provider Diagnoses: Alcohol intoxication Discharge - Sign-Out/Discharge Documenting (check all that apply): Sign-Out Patient Signing out patient TO: Saadia Potter - pending sobriety and R foot XR Patient Received Moderate/Deep Sedation with Procedure: No - Discharge Plan Condition: Stable Disposition: HOME Patient Education Materials: Alcohol Intoxication (ED) Referrals: Zoe Mitchell MD [Primary Care Provider] - 3 Days Additional Instructions: PLEASE RETURN TO THE EMERGENCY DEPARTMENT IMMEDIATELY FOR WORSENING OR CONCERNING SYMPTOMS. FOLLOW UP WITH YOUR PRIMARY CARE PHYSICIAN WITHIN THREE DAYS. - Billing Disposition and Condition Condition: STABLE Disposition: Home - Attestation Statements Document Initiated by Vicki: Yes Documenting Scribe: Juana Diaz Provider For Whom Vicki is Documenting (Include Credential): Dominguez Winter MD Scribe Attestation: Juana Sexton scribed for Dominguez Winter MD on 11/30/18 at 1429. Scribe Documentation Reviewed: Yes Provider Attestation: The documentation as recorded by the Juana jolly accurately reflects the service I personally performed and the decisions made by Dominguez alvarez MD Status of Scribe Document: Viewed
[2018-11-29] MEDS ORDERED: LORazepam INJ* 2 MG/ML 1 ML VIAL ONE (21:04)
[2018-11-29] MEDS ORDERED: Haloperidol INJ IV/IM* 5 MG/ML AMP ONE (21:24)
[2018-11-29] MEDS ORDERED: Haloperidol INJ IV/IM* 5 MG/ML AMP IM ONE (21:27)
--- NOTE | 2018-11-29 22:14 | ED ---
Progress - Progress Note Progress Note: Patient received as a sign out from Dr. Winter at 2200 11/29/18 pending sobriety of patient and right foot x-ray. 0455 - Patient is awake and sober at this time. She states that she drinks x5 a week. Patient denies HI and SI. She will receive x-ray of right foot. - EKG/XRAY/CT XRAY: right foot Xray Comments: Right foot X-ray showed no acute process, pending official report Re-Evaluation - Re-Evaluation First Eval Re-Evaluation Time: 04:55 Change: Improved Comment: 0455 - Patient is awake and sober at this time. She states that she drinks x5 a week. Patient denies HI and SI. She will receive x-ray of right foot. Course/Dx - Course Course Of Treatment: Patient received as a sign out from Dr. Winter at 2200 11/29 pending sobriety of patient and right foot x-ray. 0455 - Patient is awake and sober at this time. She states that she drinks x5 a week. Patient denies HI and SI. She will receive x-ray of right foot. Right foot X-ray showed no acute process, pending official report. Patient will be discharged to home and follow up with PCP. - Diagnoses Provider Diagnoses: Alcohol intoxication Discharge - Sign-Out/Discharge Documenting (check all that apply): Patient Departure - discharge Patient Received Moderate/Deep Sedation with Procedure: No - Discharge Plan Condition: Stable Disposition: HOME Patient Education Materials: Alcohol Intoxication (ED) Referrals: Zoe Mitchell MD [Primary Care Provider] - 3 Days Additional Instructions: PLEASE RETURN TO THE EMERGENCY DEPARTMENT IMMEDIATELY FOR WORSENING OR CONCERNING SYMPTOMS. FOLLOW UP WITH YOUR PRIMARY CARE PHYSICIAN WITHIN THREE DAYS. - Attestation Statements Document Initiated by Scribe: Yes Documenting Scribe: ELVIA FREDERICK Provider For Whom Scribe is Documenting (Include Credential): ELEAZAR TY MD Scribe Attestation: ELVIA Sexton, scribed for ELEAZAR TY MD on 11/30/18 at 0557. Status of Scribe Document: Ready
[2018-11-30 06:41] VITALS: BP 110/93
== END 2018-11-30 06:41 | disposition home or self-care (01) ==
LOC: ED 20:00
DX: F10.129 Alcohol abuse with intoxication, unspecified (principal); S51.811A Laceration without foreign body of right forearm, initial encounter; F17.210 Nicotine dependence, cigarettes, uncomplicated; Z87.42 Personal history of other diseases of the female genital tract; Z86.14 Personal history of Methicillin resistant Staphylococcus aureus infection; X58.XXXA Exposure to other specified factors, initial encounter; Y92.9 Unspecified place or not applicable
CPT/HCPCS: 96372; 96374; 99285; J1630; J2060

== ENCOUNTER → 2018-12-06 14:19 | Emergency (ER) | payer OTHER ==
[~2018-12-06 14:19] MED LIST: Ketorolac INJ* 60 MG/2 ML VIAL IM ONE
[2018-12-06 14:26] VITALS: BP 116/82
--- NOTE | 2018-12-07 05:25 | ED ---
Lower Extremity - HPI Summary HPI Summary: Patient is a 32-year-old female presenting to the ED with left ankle injury S/P fall. Patient is currently intoxicated. Patient states she tripped, falling to her left knee and twisting her left ankle. She denies any knee pain at this time. She is tearful on arrival and states she would like to leave. She states she is willing to stay for a x-ray. Denies any numbness or tingling. The ankle has some swelling, but no ecchymosis. There is abrasions to the right forearm and left knee. She denies any pain to the right forearm. She denies any other pain otherwise. She is unable to take opioids as she uses Suboxone. She states she has not taken this for a while though and would like pain medication. I stop reveals she was recently rx suboxone. - History of Current Complaint Chief Complaint: EDExtremityLower Stated Complaint: ROLLED LEFT ANKLE/LEFT KNEE PAIN PER PT Time Seen by Provider: 12/06/18 14:30 Hx Obtained From: Patient Hx Last Menstrual Period: 04/02/18 Mechanism Of Injury: Twisted Onset of Pain: Hours Onset/Duration: Hours Severity Initially: Moderate Severity Currently: Severe Pain Intensity: 9 Pain Scale Used: 0-10 Numeric Timing: Constant Location: Is Discrete @ - right ankle pain Character Of Pain: Aching Associated Signs And Symptoms: Positive: Negative Aggravating Factor(s): Standing Alleviating Factor(s): Rest Able to Bear Weight: No - Risk Factors Gout Risk Factors: Negative DVT Risk Factors: Negative Septic Arthritis Risk Factor: IV Drug Abuse - Allergies/Home Medications Allergies/Adverse Reactions: Allergies Allergy/AdvReac Type Severity Reaction Status Date / Time Bees Allergy Severe Airway Uncoded 12/06/18 14:25 Obstruction PMH/Surg Hx/FS Hx/Imm Hx Previously Healthy: Yes Endocrine/Hematology History: Denies: Hx Diabetes Cardiovascular History: Reports: Other Cardiovascular Problems/Disorders - Endocarditis Denies: Hx Hypertension Respiratory History: Reports: Hx Asthma History: Reports: Hx Kidney Infection - age 9, Other Problems/Disorders - ovarian cyst-2006 Denies: Hx Renal Disease Musculoskeletal History: Reports: Hx Back Problems Psychiatric History: Reports: Hx Anxiety, Hx Depression, Hx Post Traumatic Stress Disorder - confirmed DSM diagnosis of, Hx Inpatient Treatment - prior [facility] as [facility] in 2011, Hx [facility] Tx, Hx Suicide Attempt - suicidal gesture while intoxicated in 2010, Hx Substance Abuse, Other Psychiatric Issues/Disorders - night terrors - Cancer History Cancer Type, Location and Year: ovarian cyst - Surgical History Surgery Procedure, Year, and Place: 3 LEFT KNEE SCOPES, 3 D&Cs, TEETH EXTRACTION , tonsilectomy x2, ovarian cyst removal - Immunization History Date of Tetanus Vaccine: 05/23/2017 Date of Influenza Vaccine: unk Hx Pertussis Vaccination: No Immunizations Up to Date: Yes Infectious Disease History: No Infectious Disease History: Reports: Hx Hepatitis - hep c +, Hx of Known/ Suspected MRSA Denies: Traveled Outside the [place] in Last 30 Days - Family History Known Family History: Positive: Other - substance abuse - Social History Occupation: Employed Full-time Lives: With Family Alcohol Use: Weekly Alcohol Amount: 4x week Hx Substance Use: Yes Substance Use Type: Reports: Marijuana Substance Use Comment - Amount & Last Used: hx IV drug use. hasnt used in 1.5 years Hx Tobacco Use: Yes Smoking Status (MU): Heavy Every Day Tobacco Smoker Type: Cigarettes Amount Used/How Often: 1ppd Have You Smoked in the Last Year: Yes Review of Systems Negative: Fever, Chills, Fatigue, Skin Diaphoresis Negative: Palpitations, Chest Pain Negative: Shortness Of Breath, Cough Genitourinary: Negative Positive: no symptoms reported, see HPI Positive: Arthralgia - left ankle pain, Myalgia Skin: Negative Neurological: Negative All Other Systems Reviewed And Are Negative: Yes Physical Exam Triage Information Reviewed: Yes Vital Signs On Initial Exam: Initial Vitals Temp Pulse Resp BP Pulse Ox 98.0 F 86 20 116/82 93 12/06/18 14:21 12/06/18 14:21 12/06/18 14:21 12/06/18 14:21 12/06/18 14:21 Vital Signs Reviewed: Yes Appearance: Positive: Well-Appearing, Well-Nourished Skin: Positive: Skin Color Reflects Adequate Perfusion Head/Face: Positive: Normal Head/Face Inspection Eyes: Positive: EOMI, Conjunctiva Clear Neck: Positive: Supple, No Lymphadenopathy Respiratory/Lung Sounds: Positive: Clear to Auscultation, Breath Sounds Present Cardiovascular: Positive: RRR, Pulses are Symmetrical in both Upper and Lower Extremities Musculoskeletal: Positive: Pain @ - left ankle pain Neurological: Positive: Slurred Speech, Other - patient intoxicated Psychiatric: Positive: Patient Uncooperative for Exam AVPU Assessment: Alert Diagnostics - Vital Signs Vital Signs Temp Pulse Resp BP Pulse Ox 12/06/18 14:21 98.0 F 86 20 116/82 93 - Laboratory Lab Statement: Any lab studies that have been ordered have been reviewed, and results considered in the medical decision making process. Lower Extremity Course/Dx - Course Course Of Treatment: Patient presents to the ED S/P fall. She is endorsing left ankle pain. X-ray of the ankle obtained. On physical examination, dorsiflexion and plantar flexion intact, however with pain. There is a slight amount of swelling to the lateral portion of the ankle without ecchymosis. She denies any other pain. X-ray obtained which shows no acute fracture. Patient is ambulating well and states she would like to leave. I have offered her Toradol shot and she accepts. I'm unable to give her opioids that she is currently on Suboxone and she is also intoxicated. She has a safe ride home at bedside and I've spoken with this individual. We will discharge her home with a gel splint. Patient remained territory, she will not be given crutches at this time. - Diagnoses Differential Diagnosis/HQI/PQRI: Positive: Sprain, Strain Provider Diagnoses: Intoxication, Left ankle sprain Discharge - Sign-Out/Discharge Documenting (check all that apply): Patient Departure Patient Received Moderate/Deep Sedation with Procedure: No - Discharge Plan Condition: Stable Disposition: HOME Patient Education Materials: Ankle Sprain (ED) Referrals: Zoe Mitchell MD [Primary Care Provider] - Additional Instructions: Ibuprofen 600mg three times daily - Billing Disposition and Condition Condition: STABLE Disposition: Home
== END | disposition home or self-care (01) ==
LOC: ED 14:19
DX: S93.402A Sprain of unspecified ligament of left ankle, initial encounter (principal); F10.129 Alcohol abuse with intoxication, unspecified; F17.210 Nicotine dependence, cigarettes, uncomplicated; I38 Endocarditis, valve unspecified; F32.9 Major depressive disorder, single episode, unspecified; F41.9 Anxiety disorder, unspecified; F43.10 Post-traumatic stress disorder, unspecified; Z85.43 Personal history of malignant neoplasm of ovary; B19.20 Unspecified viral hepatitis C without hepatic coma; W18.09XA Striking against other object with subsequent fall, initial encounter; Y92.9 Unspecified place or not applicable; S50.811A Abrasion of right forearm, initial encounter; S80.212A Abrasion, left knee, initial encounter
CPT/HCPCS: 96372; 99282; J1885

== ENCOUNTER 2018-12-11 14:21 | Emergency (ER) | payer OTHER ==
[2018-12-11 19:01] VITALS: BP 125/76
--- NOTE | 2018-12-12 05:56 | ED ---
Substance Abuse/Use - HPI Summary HPI Summary: Patient is a 33-year-old female with history of drug and alcohol abuse presenting to the ED with a request for detoxification. She states she would like to go to a rehabilitation facility, however they will not take her without an alcohol level. She takes Suboxone daily and endorses several other drugs. On arrival, she is noncooperative and combative. She denies any physical pain, but states she would only like her alcohol to be drawn at this time. She does follow-up with [facility] her Suboxone. Boyfriend at bedside states she has a bottle of vodka on her person. Daily smoker. Endorses 1 L of vodka use daily. - History Of Current Complaint Chief Complaint: EDSubstanceAbuse Stated Complaint: DETOX REQUESTED PER PT Time Seen by Provider: 12/11/18 15:32 Hx Obtained From: Patient, Family/Clinical Counselor Hx Last Menstrual Period: 04/02/18 ?: No Ingestion History: Type/Name Of Drug - heroin, alcohol Overdose Characteristics: Oral, Inhalation, IV Timing Of Abuse: Daily Severity Initially: Severe Severity Currently: Severe Character: Stuporous Aggravating Factor(s): Nothing Alleviating Factor(s): Nothing Associated Signs And Symptoms: Sleep Disturbance, Social Withdrawal, Social Isolation Related Hx: Drug/Alcohol Last Used @ - today 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, Possible Multi Drug Ingestion - Risk Factor(s) Completed Suicide Risk Factors: Negative - Allergies/Home Medications Allergies/Adverse Reactions: Allergies Allergy/AdvReac Type Severity Reaction Status Date / Time Bees Allergy Severe Airway Uncoded 12/06/18 14:25 Obstruction Home Medications: Home Medications Clindamycin Cap(NF) [Clindamycin Cap 300 mg Cap(NF)] 1 tab PO DAILY 12/11/18 [ History Confirmed 12/11/18] Gabapentin 1 cap PO QID 12/11/18 [History Confirmed 12/11/18] chlordiazePOXIDE HCl [Chlordiazepoxide HCl] 25 mg PO DAILY 12/11/18 [History Confirmed 12/11/18] PMH/Surg Hx/FS Hx/Imm Hx Previously Healthy: Yes Endocrine/Hematology History: Denies: Hx Diabetes Cardiovascular History: Reports: Other Cardiovascular Problems/Disorders - Endocarditis Denies: Hx Hypertension Respiratory History: Reports: Hx Asthma History: Reports: Hx Kidney Infection - age 9, Other Problems/Disorders - ovarian cyst-2006 Denies: Hx Renal Disease Musculoskeletal History: Reports: Hx Back Problems Psychiatric History: Reports: Hx Anxiety, Hx Depression, Hx Post Traumatic Stress Disorder - confirmed DSM diagnosis of, Hx Inpatient Treatment - prior [facility] as [facility] in 2011, Hx [facility] Tx, Hx Suicide Attempt - suicidal gesture while intoxicated in 2010, Hx Substance Abuse, Other Psychiatric Issues/Disorders - night terrors - Cancer History Cancer Type, Location and Year: ovarian cyst - Surgical History Surgery Procedure, Year, and Place: 3 LEFT KNEE SCOPES, 3 D&Cs, TEETH EXTRACTION , tonsilectomy x2, ovarian cyst removal - Immunization History Date of Tetanus Vaccine: 05/23/2017 Date of Influenza Vaccine: unk Hx Pertussis Vaccination: No Immunizations Up to Date: Yes Infectious Disease History: No Infectious Disease History: Reports: Hx Hepatitis - hep c +, Hx of Known/ Suspected MRSA Denies: Traveled Outside the [place] in Last 30 Days - Family History Known Family History: Positive: Other - substance abuse - Social History Occupation: Unemployed Lives: With Family Alcohol Use: Daily Alcohol Amount: 1L Hx Substance Use: Yes Substance Use Type: Reports: Marijuana, Prescribed Substance Use Comment - Amount & Last Used: hx IV drug use. hasnt used in 1.5 years Hx Tobacco Use: Yes Smoking Status (MU): Heavy Every Day Tobacco Smoker Type: Cigarettes Amount Used/How Often: 1ppd Have You Smoked in the Last Year: Yes Review of Systems Constitutional: Negative Negative: Fever, Chills, Fatigue, Skin Diaphoresis Negative: Palpitations, Chest Pain Negative: Shortness Of Breath, Cough Negative: Arthralgia, Myalgia Skin: Negative Positive: Slurred Speech All Other Systems Reviewed And Are Negative: Yes Physical Exam Triage Information Reviewed: Yes Vital Signs On Initial Exam: Initial Vitals Temp Pulse Resp BP Pulse Ox 97.1 F 86 14 114/71 93 12/11/18 14:32 12/11/18 14:32 12/11/18 14:32 12/11/18 14:32 12/11/18 14:32 Completion Of Physical Exam Limited Due To: Altered Mental Status Appearance: Positive: Well-Appearing, Ill-Appearing Skin: Positive: Warm, Skin Color Reflects Adequate Perfusion Head/Face: Positive: Normal Head/Face Inspection Eyes: Positive: Conjunctiva Clear Neck: Positive: Supple, No Lymphadenopathy Respiratory/Lung Sounds: Positive: Clear to Auscultation, Breath Sounds Present Neurological: Positive: Slurred Speech Psychiatric: Positive: Patient Uncooperative for Exam Diagnostics - Vital Signs Vital Signs Temp Pulse Resp BP Pulse Ox 12/11/18 18:58 98.4 F 92 12 125/76 97 12/11/18 14:32 97.1 F 86 14 114/71 93 - Laboratory Lab Results: Lab Results 12/11/18 Range/Units 15:35 Serum Alcohol 240 H (<10) mg/dL Lab Statement: Any lab studies that have been ordered have been reviewed, and results considered in the medical decision making process. Course/Dx - Course Course Of Treatment: Patient is evaluated for alcohol intoxication. Alcohol levels drawn as patient would like to go to a rehabilitation facility. Discussed with [facility] (rehabilitation facility) who states they will take the patient after alcohol level is drawn. Medicaid Will be able to perform appear in the ED and take him over to [facility]. However upon obtaining the alcohol levels, which continued to be unable to reach back to [facility] rehab. Alcohol level was 240. She is clinically sober after 4.5 hours at 25/hr. She was discharged at this time with a Medicaid. She states she no longer would like to go to the rehabilitation facility and we'll go home at this time. - Diagnoses Differential Diagnosis/HQI/PQRI: Positive: Alcohol Abuse, Drug Abuse Provider Diagnoses: Alcohol intoxication Discharge - Sign-Out/Discharge Documenting (check all that apply): Patient Departure Patient Received Moderate/Deep Sedation with Procedure: No - Discharge Plan Condition: Stable Disposition: HOME Patient Education Materials: Alcohol Intoxication (ED) Referrals: Zoe Mitchell MD [Primary Care Provider] - Additional Instructions: Blood alcohol level = 240. - Billing Disposition and Condition Condition: STABLE Disposition: Home
== END 2018-12-11 18:58 | disposition home or self-care (01) ==
LOC: ED 14:21
DX: F10.129 Alcohol abuse with intoxication, unspecified (principal); F19.10 Other psychoactive substance abuse, uncomplicated; Y90.8 Blood alcohol level of 240 mg/100 ml or more; I38 Endocarditis, valve unspecified; J45.909 Unspecified asthma, uncomplicated; F41.9 Anxiety disorder, unspecified; F32.9 Major depressive disorder, single episode, unspecified; F43.12 Post-traumatic stress disorder, chronic; F17.210 Nicotine dependence, cigarettes, uncomplicated; Z86.19 Personal history of other infectious and parasitic diseases
CPT/HCPCS: 36415; 80320; 86703; 99282; G0480

== ENCOUNTER 2018-12-27 14:33 | Emergency (ER) | payer MEDICAID, OTHER ==
[2018-12-27 14:43] VITALS: BP 127/90
--- NOTE | 2018-12-27 14:46 | ED ---
Substance Abuse/Use - HPI Summary HPI Summary: Patient is a 33 y/o F presenting to ED via EMS after experiencing a hallucination episode after using K2. Patient states that she did not call EMS and believes a friend did. She states that the episode of hallucinations lasted three minutes long. Episode is described as intense. At present, the patient states that she feels fine and does not want to receive medical treatment. Patient is agreeable with discharge to home. On triage, pain is denied, nothing is noted to aggravate/alleviate Sx. Home medications and allergies are reviewed. - History Of Current Complaint Stated Complaint: AMS PER EMS Time Seen by Provider: 12/27/18 14:35 Hx Obtained From: Patient Hx Last Menstrual Period: 04/02/18 Onset/Duration of Drug/ETOH Abuse: Hours Ingestion History: Type/Name Of Drug - K2 Overdose Characteristics: Inhalation Severity Currently: None Character: Other - hallucination episode Aggravating Factor(s): Nothing Alleviating Factor(s): Nothing Associated Signs And Symptoms: Hallucinating - Allergies/Home Medications Allergies/Adverse Reactions: Allergies Allergy/AdvReac Type Severity Reaction Status Date / Time Bees Allergy Severe Airway Uncoded 12/06/18 14:25 Obstruction PMH/Surg Hx/FS Hx/Imm Hx Endocrine/Hematology History: Denies: Hx Diabetes Cardiovascular History: Reports: Other Cardiovascular Problems/Disorders - Endocarditis Denies: Hx Hypertension Respiratory History: Reports: Hx Asthma History: Reports: Hx Kidney Infection - age 9, Other Problems/Disorders - ovarian cyst-2006 Denies: Hx Renal Disease Musculoskeletal History: Reports: Hx Back Problems Psychiatric History: Reports: Hx Anxiety, Hx Depression, Hx Post Traumatic Stress Disorder - confirmed DSM diagnosis of, Hx Inpatient Treatment - prior [facility] admission as in-pt in 2011, Hx Community Mental Health Tx, Hx Suicide Attempt - suicidal gesture while intoxicated in 2010, Hx Substance Abuse, Other Psychiatric Issues/Disorders - night terrors - Cancer History Cancer Type, Location and Year: ovarian cyst - Surgical History Surgery Procedure, Year, and Place: 3 LEFT KNEE SCOPES, 3 D&Cs, TEETH EXTRACTION , tonsilectomy x2, ovarian cyst removal - Immunization History Date of Tetanus Vaccine: 05/23/2017 Date of Influenza Vaccine: unk Infectious Disease History: Reports: Hx Hepatitis - hep c +, Hx of Known/ Suspected MRSA - Family History Known Family History: Positive: Other - substance abuse - Social History Alcohol Use: Daily Alcohol Amount: 1L Hx Substance Use: Yes Substance Use Type: Reports: Marijuana, Prescribed Substance Use Comment - Amount & Last Used: hx IV drug use. hasnt used in 1.5 years Hx Tobacco Use: Yes Smoking Status (MU): Heavy Every Day Tobacco Smoker Type: Cigarettes Amount Used/How Often: 1ppd Have You Smoked in the Last Year: Yes Review of Systems Constitutional: Other - POSITIVE - K2 USAGE Negative: Fever - on vitals, temp is 98.2 F Psychological: Other - POSITIVE - HALLUCINATIONS All Other Systems Reviewed And Are Negative: Yes Physical Exam - Summary Physical Exam Summary: Appearance: The patient is well-nourished in no acute distress and in no acute pain. Skin: The skin is warm and dry and skin color reflects adequate perfusion. HEENT: The head is normocephalic and atraumatic. The pupils are equal and reactive. The conjunctivae are clear and without drainage. Nares are patent and without drainage. Mouth reveals moist mucous membranes and the throat is without erythema and exudate. The external ears are intact. The ear canals are patent and without drainage. The tympanic membranes are intact. Neck: The neck is supple with full range of motion and non-tender. There are no carotid bruits. There is no neck vein distension. Respiratory: Chest is non-tender. Lungs are clear to auscultation and breath sounds are symmetrical and equal. Cardiovascular: Heart is regular rate and rhythm. There is no murmur or rub auscultated. There is no peripheral edema and pulses are symmetrical and equal. Abdomen: The abdomen is soft and non-tender. There are normal bowel sounds heard in all four quadrants and there is no organomegaly palpated. Musculoskeletal: There is no back tenderness noted. Extremities are non-tender with full range of motion. There is good capillary refill. There is no peripheral edema or calf tenderness elicited. Neurological: Patient is alert and oriented to person, place and time. The patient has symmetrical motor strength in all four extremities. Cranial nerves are grossly intact. Deep tendon reflexes are symmetrical and equal in all four extremities. Some slight slurred speech is noted. GCS 15. Psychiatric: The patient has an appropriate affect and does not exhibit any anxiety or depression. Triage Information Reviewed: Yes Vital Signs On Initial Exam: Initial Vitals Temp Pulse Resp BP Pulse Ox 98.2 F 81 16 127/90 97 05/13/19 14:37 12/27/18 14:37 12/27/18 14:37 12/27/18 14:37 12/27/18 14:37 Vital Signs Reviewed: Yes - [place] Coma Scale Best Eye Response: 4 - Spontaneous Best Motor Response: 6 - Obeys Commands Best Verbal Response: 5 - Oriented Coma Scale Total: 15 Course/Dx - Course Course Of Treatment: Ms. Aranda was back to baseline by the time I saw her. She states that she took K2 to anger her significant other. And that she had a reaction which is typical and only lasts a few minutes. She would prefer to go home without any further evaluation and I can see no reason not to. She has recently finished rehabilitation for alcohol and it has been 16 days since she has had a drink - Diagnoses Provider Diagnoses: Substance abuse Discharge - Sign-Out/Discharge Documenting (check all that apply): Patient Departure - discharge Patient Received Moderate/Deep Sedation with Procedure: No - Discharge Plan Condition: Stable Disposition: HOME Patient Education Materials: Polysubstance Abuse (ED) Referrals: Zoe Mitchell MD [Primary Care Provider] - Additional Instructions: follow up with counselor. - Billing Disposition and Condition Condition: STABLE Disposition: Home - Attestation Statements Document Initiated by Scribe: Yes Documenting Scribe: Jesus Ya Provider For Whom Vicki is Documenting (Include Credential): Dominguez Muro MD Scribe Attestation: Lenin Sexton Jacob Kolenda, scribed for Dominguez Muro MD on 12/27/18 at 1810. Scribe Documentation Reviewed: Yes Provider Attestation: The documentation as recorded by the deannaibLenin rizo Jacob Kolenda accurately reflects the service I personally performed and the decisions made by me, Dominguez Muro MD Status of Scribe Document: Viewed
== END 2018-12-27 14:50 | disposition home or self-care (01) ==
LOC: ED 14:33
DX: F19.10 Other psychoactive substance abuse, uncomplicated (principal); I38 Endocarditis, valve unspecified; J45.909 Unspecified asthma, uncomplicated; F41.9 Anxiety disorder, unspecified; F32.9 Major depressive disorder, single episode, unspecified; F43.10 Post-traumatic stress disorder, unspecified; F17.210 Nicotine dependence, cigarettes, uncomplicated; F51.4 Sleep terrors [night terrors]; Z91.5 Personal history of self-harm; Z86.19 Personal history of other infectious and parasitic diseases; Z86.14 Personal history of Methicillin resistant Staphylococcus aureus infection
CPT/HCPCS: 99282

== ENCOUNTER 2019-01-09 16:03 | Emergency (ER) | payer MEDICAID ==
[2019-01-09] MEDS ORDERED: Ibuprofen TAB* 600 MG PO ONE (16:08)
--- NOTE | 2019-01-09 16:41 | ED ---
Laceration/Wound HPI - HPI Summary HPI Summary: Patient is a 33-year-old female with a history of alcohol abuse and alcohol intoxication presenting to the ED after a fall, [place] EMS was called and brought her in by 2208. She denies any SI or HI. She denies any depression or anxiety. She states she had 1 L of vodka this afternoon. Boyfriend is at bedside. There is a 2 cm laceration just above the left eyebrow. There is also a small 0.7 cm laceration to the left knee. She denies any pain with flexion or extension of the left knee. She does have a history of knee replacement to the ipsilateral side. She denies any confusion, memory loss, visual changes. She does endorse a headache. - History of Current Complaint Stated Complaint: "2208 PER OFFICER" Time Seen by Provider: 01/09/19 16:07 Hx Obtained From: Family/Clinical Director, EMS Hx Last Menstrual Period: 04/02/18 Mechanism of Injury: Sharp/Blunt Trauma Onset/Duration: Sudden Onset Aggravating: Movement Timing: Constant Onset Severity: Moderate Current Severity: Moderate Pain Intensity: 8 Pain Scale Used: 0-10 Numeric Associated Signs & Symptoms: Negative - Additional Pertinent History Primary Care Physician: [id number] - Allergy/Home Medications Allergies/Adverse Reactions: Allergies Allergy/AdvReac Type Severity Reaction Status Date / Time Bees Allergy Severe Airway Uncoded 12/06/18 14:25 Obstruction PMH/Surg Hx/FS Hx/Imm Hx Previously Healthy: Yes - alcoholic Endocrine/Hematology History: Denies: Hx Diabetes Cardiovascular History: Reports: Other Cardiovascular Problems/Disorders - Endocarditis Denies: Hx Hypertension Respiratory History: Reports: Hx Asthma History: Reports: Hx Kidney Infection - age 9, Other Problems/Disorders - ovarian cyst-2006 Denies: Hx Renal Disease Musculoskeletal History: Reports: Hx Back Problems Psychiatric History: Reports: Hx Anxiety, Hx Depression, Hx Post Traumatic Stress Disorder - confirmed DSM diagnosis of, Hx Inpatient Treatment - prior U admission as in-pt in 2011, Hx Community Mental Health Tx, Hx Suicide Attempt - suicidal gesture while intoxicated in 2010, Hx Substance Abuse, Other Psychiatric Issues/Disorders - night terrors - Cancer History Cancer Type, Location and Year: ovarian cyst - Surgical History Surgery Procedure, Year, and Place: 3 LEFT KNEE SCOPES, 3 D&Cs, TEETH EXTRACTION , tonsilectomy x2, ovarian cyst removal - Immunization History Date of Tetanus Vaccine: 05/23/2017 Date of Influenza Vaccine: unk Hx Pertussis Vaccination: No Immunizations Up to Date: Yes Infectious Disease History: No Infectious Disease History: Reports: Hx Hepatitis - hep c +, Hx of Known/ Suspected MRSA Denies: Traveled Outside the [place] in Last 30 Days - Family History Known Family History: Positive: Other - substance abuse - Social History Occupation: Unemployed Lives: With Family Alcohol Use: Daily Alcohol Amount: 1L Hx Substance Use: Yes Substance Use Type: Reports: Marijuana, Prescribed Substance Use Comment - Amount & Last Used: hx IV drug use. hasnt used in 1.5 years Hx Tobacco Use: Yes Smoking Status (MU): Heavy Every Day Tobacco Smoker Type: Cigarettes Amount Used/How Often: 1ppd Have You Smoked in the Last Year: Yes Review of Systems Negative: Fever, Chills, Fatigue, Skin Diaphoresis Negative: Palpitations, Chest Pain Negative: Shortness Of Breath, Cough Genitourinary: Negative Positive: no symptoms reported, see HPI Musculoskeletal: Negative Psychological: Normal All Other Systems Reviewed And Are Negative: Yes - all Physical Exam Triage Information Reviewed: Yes Vital Signs On Initial Exam: Initial Vitals Temp Pulse Resp BP Pulse Ox 99 F 96 20 136/99 98 01/09/19 16:13 01/09/19 16:13 01/09/19 16:13 01/09/19 16:13 01/09/19 16:13 Completion Of Physical Exam Limited Due To: Altered Mental Status - alocholic Appearance: Positive: Well-Appearing Skin: Positive: Skin Color Reflects Adequate Perfusion, Other - laceration to above the eyebrow Head/Face: Positive: Normal Head/Face Inspection, Other Neck: Positive: No Lymphadenopathy Respiratory/Lung Sounds: Positive: Clear to Auscultation, Breath Sounds Present Cardiovascular: Positive: RRR, Pulses are Symmetrical in both Upper and Lower Extremities Musculoskeletal: Positive: Normal, Strength/ROM Intact Neurological: Positive: Speech Normal Psychiatric: Positive: Affect/Mood Appropriate Diagnostics - Vital Signs Vital Signs Temp Pulse Resp BP Pulse Ox 01/09/19 16:13 99 F 96 20 136/99 98 - Laboratory Lab Statement: Any lab studies that have been ordered have been reviewed, and results considered in the medical decision making process. Laceration Repair Course/Dx - Course Course Of Treatment: During the course of treatment, the patient is evaluated for laceration to the left eyebrow as well as head injury. This patient is intoxicated and is unable to give a good history, a CT brain was obtained. CT shows no acute findings. Laceration is approximately 1.5 cm in length to the left eyebrow and is approximately 0.3 cm in depth. 1ml lidocaine without epi used as local anesthetic. 4, 5-0 Prolene sutures placed. Discussed obtaining a L knee xray as patient is c/o pain with flexion and extension. Small laceration measuring 1.0cm superificial to the knee, patient does not want this to be sutured. Obvious alcohol intoxication, however were not obtained. Patient endorses approximately 6-7 weeks since last period which she states is usually normal. For this reason, test was ordered. Patient signed out to JOSH Ray pending preg test and xray. - Clinical Impression Provider Diagnoses: Laceration, Alcohol intoxication, Head injury, Discharge - Sign-Out/Discharge Documenting (check all that apply): Sign-Out Patient Signing out patient TO: Daniel Stratton Patient Received Moderate/Deep Sedation with Procedure: No - Discharge Plan Condition: Stable Disposition: HOME Patient Education Materials: (ED), Care For Your Stitches (ED), Laceration (ED), Abuse of Alcohol (ED) Referrals: Destiny Murphy MD [Medical Doctor] - Zoe Mitchell MD [Primary Care Provider] - Eugenia Dhaliwal MD [Medical Doctor] - Additional Instructions: Please follow up with Dr. Murphy (orthopedics) Please follow-up with NEUROLOGY DIRECTOR Dr. Dhaliwal for further management of . Do not drink alcohol while as this can arm your fetus. Follow-up with outpatient alcohol cessation resources provided. Suture removal on Thursday, January 14 Come back to the ED for this Keep a bandage applied to the knee x 3 days Replace the current bandage after 24 hours If you develop any swelling, redness or warmth to the area - return to the ED - Billing Disposition and Condition Condition: STABLE Disposition: Home
[2019-01-09 18:28] VITALS: BP 119/89
== END 2019-01-09 18:27 | disposition home or self-care (01) ==
LOC: ED 16:03
DX: S01.112A Laceration without foreign body of left eyelid and periocular area, initial encounter (principal); S81.012A Laceration without foreign body, left knee, initial encounter; S09.90XA Unspecified injury of head, initial encounter; W18.09XA Striking against other object with subsequent fall, initial encounter; Y92.89 Other specified places as the place of occurrence of the external cause; F10.129 Alcohol abuse with intoxication, unspecified; Z32.01 Encounter for pregnancy test, result positive; Z91.030 Bee allergy status; F17.210 Nicotine dependence, cigarettes, uncomplicated
CPT/HCPCS: 12011; 36415; 70450; 84702; 99284; A9270-GY

== ENCOUNTER 2019-01-28 17:10 | Emergency (ER) | payer MEDICAID, OTHER ==
--- NOTE | 2019-01-28 17:58 | ED ---
Substance Abuse/Use - HPI Summary HPI Summary: Pt is a 33 y/o F presenting to the ED brought in by the [employer] for substance abuse. She states she had too many Leslie bombs, and I fell in my yard, and the neighbors called the sack cleaner. She denies any myalgia or fever. - History Of Current Complaint Chief Complaint: EDSubstanceAbuse Stated Complaint: "2208 PER POLICE" Time Seen by Provider: 01/28/19 17:51 Hx Obtained From: Patient Hx Last Menstrual Period: 04/02/18 Onset/Duration of Drug/ETOH Abuse: Hours Overdose Characteristics: Oral Severity Initially: Moderate Severity Currently: Moderate Character: Stuporous Aggravating Factor(s): Nothing Alleviating Factor(s): Nothing - Allergies/Home Medications Allergies/Adverse Reactions: Allergies Allergy/AdvReac Type Severity Reaction Status Date / Time Bees Allergy Severe Airway Uncoded 01/28/19 17:12 Obstruction PMH/Surg Hx/FS Hx/Imm Hx Previously Healthy: No Endocrine/Hematology History: Denies: Hx Diabetes Cardiovascular History: Reports: Other Cardiovascular Problems/Disorders - Endocarditis Denies: Hx Hypertension Respiratory History: Reports: Hx Asthma History: Reports: Hx Kidney Infection - age 9, Other Problems/Disorders - ovarian cyst-2006 Denies: Hx Renal Disease Musculoskeletal History: Reports: Hx Back Problems Psychiatric History: Reports: Hx Anxiety, Hx Depression, Hx Post Traumatic Stress Disorder - confirmed DSM diagnosis of, Hx Inpatient Treatment - prior U admission as in-pt in 2011, Hx Community Mental Health Tx, Hx Suicide Attempt - suicidal gesture while intoxicated in 2010, Hx Substance Abuse, Other Psychiatric Issues/Disorders - night terrors - Cancer History Cancer Type, Location and Year: ovarian cyst - Surgical History Surgery Procedure, Year, and Place: 3 LEFT KNEE SCOPES, 3 D&Cs, TEETH EXTRACTION , tonsilectomy x2, ovarian cyst removal - Immunization History Date of Tetanus Vaccine: 05/23/2017 Date of Influenza Vaccine: unk Infectious Disease History: No Infectious Disease History: Reports: Hx Hepatitis - hep c +, Hx of Known/ Suspected MRSA Denies: Traveled Outside the [place] in Last 30 Days - Family History Known Family History: Positive: Other - substance abuse - Social History Alcohol Use: Daily Alcohol Amount: 1L Hx Substance Use: Yes Substance Use Type: Reports: Marijuana, Prescribed Substance Use Comment - Amount & Last Used: hx IV drug use. hasnt used in 1.5 years Hx Tobacco Use: Yes Smoking Status (MU): Heavy Every Day Tobacco Smoker Type: Cigarettes Amount Used/How Often: 1ppd Have You Smoked in the Last Year: Yes Review of Systems Negative: Fever Negative: Myalgia All Other Systems Reviewed And Are Negative: Yes Physical Exam - Summary Physical Exam Summary: Appearance: Well-appearing, Well-nourished, lying in bed comfortably Skin: Warm, dry, no obvious rash Eyes: sclera anicteric, no conjunctival pallor ENT: mucous membranes moist, pharynx appears normal Neck: Supple, nontender Respiratory: Clear to auscultation, no signs of respiratory distress Cardiovascular: Normal S1, S2. No murmurs. Normal distal pulses in tibial and radial bilaterally. Abdomen: Soft, nontender, normal active bowel sounds present Musculoskeletal: Normal, Strength/ROM Intact Neurological: A&Ox3, awake and alert, mentation is normal, speech is fluent and appropriate Psychiatric: affect is normal, does not appear anxious or depressed Triage Information Reviewed: Yes Vital Signs On Initial Exam: Initial Vitals Temp Pulse Resp BP Pulse Ox 97.7 F 0 24 000/00 0 01/28/19 17:13 01/28/19 17:13 01/28/19 17:13 01/28/19 17:13 01/28/19 17:13 Vital Signs Reviewed: Yes Diagnostics - Vital Signs Vital Signs Temp Pulse Resp BP Pulse Ox 01/28/19 17:13 97.7 F 0 24 000/00 0 - Laboratory Lab Statement: Any lab studies that have been ordered have been reviewed, and results considered in the medical decision making process. Course/Dx - Course Course Of Treatment: Pt is a 33 y/o F presenting to the ED brought in by the [employer] for substance abuse. She states she had too many Leslie bombs, and I fell in my yard, and the neighbors called the sack cleaner. She denies any myalgia or fever. Pt's physical exam is normal except for signs of moderate intoxication; she does not appear to have suffered any injury consequent to her fall. While she is intoxicated, her gait is steady, she is answering questions appropriately with only mild slurring, and she is adamant about being discharged. She is felt to be competent to make decisions at present. She will be discharged. - Diagnoses Provider Diagnoses: Alcohol intoxication Discharge - Sign-Out/Discharge Documenting (check all that apply): Patient Departure Patient Received Moderate/Deep Sedation with Procedure: No - Discharge Plan Condition: Good Disposition: HOME Patient Education Materials: Alcohol Intoxication (ED), Abuse of Alcohol (ED) Referrals: [facility] [Outside] Zoe Mitchell MD [Primary Care Provider] - - Billing Disposition and Condition Condition: GOOD Disposition: Home - Attestation Statements Document Initiated by Scribe: Yes Documenting Scribe: Sheila Pickering Provider For Whom Vicki is Documenting (Include Credential): Dominguez Winter MD. Scribe Attestation: Sheila Sexton scribed for Dominguez Winter MD. on 01/29/19 at 1015. Scribe Documentation Reviewed: Yes Provider Attestation: The documentation as recorded by the denanaibeSheila accurately reflects the service I personally performed and the decisions made by , Dominguez Winter MD. Status of Scribe Document: Viewed
[2019-01-28] MEDS ORDERED: Nicotine* 4MG (FRUIT FLAVOR) GUM PO PRN (18:33)
[2019-01-28 19:39] VITALS: BP 111/91
== END 2019-01-28 19:00 | disposition home or self-care (01) ==
LOC: ED 17:10
DX: F10.929 Alcohol use, unspecified with intoxication, unspecified (principal); F17.210 Nicotine dependence, cigarettes, uncomplicated
CPT/HCPCS: 99284